=== PATIENT | female | born 1985 | race African-American/Black ===

== ENCOUNTER → 2016-04-23 | Outpatient (CLI) | payer MEDICARE, MEDICAID ==
[~2016-04-23] MED LIST: AMLO10 PO; AMLO10TA2 PO; BENA25MI PO; CALC0.25 PO; CALC0.5C6 PO; CALC600T4 PO; CALCTAB98 PO; FOLI1TAB PO; FOLI1TAB4 PO; FOLI1TAB6 PO; FOLI800T PO; HYDR25 PO; LANT500 CHEW; LOSA100T PO; METO25 PO; METO25TA3 PO; MULT-65 PO; PANT40TA3 PO; PHOSSOL5 PO; POTA10TA2 PO; POTA75TA PO; RENV2.4P PO; SPRI28TA PO; ZITH250T PO; [UNRECOGNIZED DRUG - REMARK]
[2016-04-23 12:43] LABS: MEAN CELL VOLUME 84.3 FL (80.0-100.0); MEAN CORPUSCULAR HEMOGLOBIN 26.9 PG (27.0-34.0); MEAN CORPUSCULAR HGB CONC 31.9 % (32.0-36.0); PLATELET COUNT 133 TH/MM3 (150-450); RED BLOOD COUNT 3.08 MIL/MM3 (4.00-5.30); RED CELL DISTRIBUTION WIDTH 17.1 % (11.6-17.2); REVIEW FLAG FINAL; WHITE BLOOD COUNT 9.1 TH/MM3 (4.0-11.0)
[2016-04-23 12:54] LABS: PROTHROMBIN TIME - PATIENT 11.3 SEC (9.8-11.6)
[2016-04-23 13:14] LABS: BICARBONATE 22.2 MEQ/L (21.0-32.0); POTASSIUM 3.7 MEQ/L (3.5-5.1); TOTAL BILIRUBIN ADULT 0.3 MG/DL (0.2-1.0)
[2016-04-23 13:25] LABS: CALCIUM-PROTEIN CORRECTED 6.4 MG/DL (8.5-10.1)
--- NOTE | 2016-04-23 13:36 | RADRPT ---
EXAM DATE/TIME: 04/23/2016 12:36 [facility] COMPARISON: CHEST PA & LAT, July 18, 2012, 14:11. INDICATIONS : Evaluate for pneumonia, pneumothorax, or communicable disease. Pre op for av fistula. MEDICAL HISTORY : Hypertension. Renal failure. Asthma. Sleep apnea. Stomach ulcers. Dialysis. SURGICAL HISTORY : History of peg tube. History of tracheostomy. ENCOUNTER: Initial ACUITY: 1 day PAIN SCORE: 0/10 LOCATION: chest FINDINGS: PA and lateral views of the chest demonstrate the lungs to be symmetrically aerated without evidence of mass, infiltrate or effusion. Mild cardiomegaly and increased pulmonary vascularity. The cardiomed iastinal contours are unremarkable. Osseous structures are intact. CONCLUSION: Mild cardiomegaly and increased pulmonary vascularity. Cj Sanchez MD on April 23, 2016 at 13:34 Board Certified Radiologist. This report was verified electronically.
--- NOTE | 2016-04-24 17:43 | EKG ---
Date Performed: 04/23/2016 Time Performed: 12:10:15 PTAGE: 30 years EKG: Sinus rhythm NONSPECIFIC T-WAVE ABNORMALITY WHEN COMPARED TO PRIOR EKG THE PATIENT IS NOW IN SINUS RHYTHM AND ST SEGMENTS HAVE IMPROVED. ABNORMAL ECG NO PREVIOUS TRACING DOCTOR: Susy Mcginnis Interpretating Date/Time 04/24/2016 17:42:41
== END ==
LOC: CPRE 11:23
PROVIDERS: ATTEND Surgery
DX: Z01.812 Encounter for preprocedural laboratory examination (principal); Z01.811 Encounter for preprocedural respiratory examination; N18.6 End stage renal disease; R94.31 Abnormal electrocardiogram [ECG] [EKG]
CPT/HCPCS: 36415; 71020; 80053; 85027; 85610; 93005

== ENCOUNTER → 2016-04-27 | Day surgery (SDC) | payer MEDICARE, MEDICAID ==
[~2016-04-27] VITALS: Ht 162.6 cm; Wt 145.5 kg
[~2016-04-27] MED LIST changes: -AMLO10 PO; -BENA25MI PO; +BUPIVACAINE/EPINEPHRINE 0.25% PF 30 ML VIAL INFIL ONE; -CALCTAB98 PO; +DO NOT ADM ANY ANTICOAGULANT DRUGS XX PRN; +FAMOTIDINE 20 MG/2 ML VIAL ONE; -FOLI1TAB PO; +GELFOAM SIZE 100 ONE; +HEPARIN SODIUM - IV 10,000 UNITS/10 ML VIAL ONE; +HEPARIN SODIUM - SQ 10,000 UNITS/ML VIAL ONE; -HYDR25 PO; +INSULIN HUMAN REGULAR 1,000 UNITS/10 ML VIAL SQ PRN; +LACTATED RINGER'S 1000 ML IV SCH; -LANT500 CHEW; -METO25 PO; +METOPROLOL TARTRATE 25 MG TAB PO PRN; +MORPHINE SULFATE 4 MG/ML INJ IV PRN; +ONDANSETRON HCL 4 MG/2 ML VIAL IV PUSH ONE; +PHENYLEPH/NS 1000 MCG/10 ML SYR IV ONE; +PHENYLEPHRINE HCL 10 MG/ML VIAL IV ONE; -POTA75TA PO; +PROPOFOL 200 MG/20 ML AMP IV ONE; +PROTAMINE SULFATE 50 MG/5 ML VIAL ONE; +SODIUM CHLOR 0.9% 250 ML INJ 250 ML ONE; +SODIUM CHLORID 0.9% 500 ML IV SCH; +SODIUM CHLORIDE FLUSH BID IVF SCH; +SODIUM CHLORIDE FLUSH PRN IVF; +THROMBIN (TOPICAL) 5,000 UNIT VIAL ONE; +VANCOMYCIN HCL 1000 MG VIAL ONE; -ZITH250T PO; +fentaNYL CITRATE 250 MCG/5 ML AMP ONE; +oxyCODONE/ACETAMINOPHEN 5 MG/325 MG TAB ONE; +oxyCODONE/ACETAMINOPHEN 5 MG/325 MG TAB PO ONE
[2016-04-27 08:08] VITALS: BP 146/92; PULSE 86; RESP 20; TEMP 99; O2SAT 97
[2016-04-27 13:50] VITALS: BP 140/84; PULSE 88; RESP 16; TEMP 97.5; O2SAT 97
--- NOTE | 2016-04-28 08:23 | MP ---
cc: LORENZA ARIAS DATE OF SURGERY 04/27/2016 PREOPERATIVE DIAGNOSIS End-stage renal disease. POSTOPERATIVE DIAGNOSIS End-stage renal disease. PROCEDURE Right upper extremity A-V fistula, brachiocephalic. SURGEON MD Tiffanie HYDROLOGY TEACHER Walter Grimes ANESTHESIA General endotracheal anesthesia with 20 cc of 0.25% Marcaine with epinephrine. ESTIMATED BLOOD LOSS Minimal. URINE OUTPUT Not calculated. COMPLICATIONS None. DISPOSITION To PACU. PROCEDURE After the patient was given perioperative IV vancomycin as she has an ALLERGY TO PENICILLIN, I made a small 2-3 cm incision just above her right antecubital fossa in her right upper extremity. I dissected out the cephalic vein and the brachial artery with electrocautery and Metzenbaum scissors. I exposed the brachial artery underneath the bicipital aponeurosis, then I exposed the cephalic vein and tied off small and large branches with small and medium clips as well as 3-0 silk ties as needed. Once I did mobilize the brachial artery, I gave her approximately 3000 units of IV heparin and then I used one pediatric profunda clamp proximally and a vessel loop distally to control the brachial artery. I then divided the cephalic vein. Before I controlled the brachial artery, I did divide the cephalic vein distally with a 0 suture ligature and two medium clips. I then used the micro Albarran scissors to perform a venotomy and then I performed an end-to-side anastomosis with a 5-0 Prolene after I performed arteriotomy with an 11-blade and micro Albarran scissors. It should be noted that there was good back-bleeding from the distal brachial artery as well as the vein before closing. It should be noted that there was an excellent thrill in this vein, although the vein was in diameter approximately 1.5 to 2 cm. It did get a little more narrow distally, but there was a noticeable difference in the radial artery distally from triphasic to monophasic and I essentially thought that there may be some steal after the case with this degree of blood flow intake from the fistula. I did plicate down with a 2-0 silk suture, down to a level where the triphasic and signal returned in the right radial artery and there was still a palpable thrill in the cephalic vein. It should be noted that this could be further modified because we will have to bring the patient back for cephalization of her cephalic vein as she has morbid obesity. At the end of the case I used Surgicel to help out with hemostasis and Thrombin Gelfoam. I removed the Thrombin Gelfoam and I left 2-3 piece of Surgicel right around the area of the anastomosis. I did use a total 20 cc of 0.25% Marcaine with epinephrine and then I used a 2-0 and 3-0 Vicryl suture to close the deep fatty layers without impinging my outflow fistula and I used a 4-0 Monocryl with Dermabond over the skin at the end of the case. At the end of the case we did put a Kerlix dressing and a sling and a right upper extremity drape. The patient tolerated the procedure well. DO FRANKIE Montgomery/SUMMER /11:57 AM /8:12 AM
== END | disposition home or self-care (01) ==
LOC: HCVO 07:11
PROVIDERS: ATTEND Surgery
DX: I13.2 Hypertensive heart and chronic kidney disease with heart failure and with stage 5 chronic kidney disease, or end stage renal disease (principal); N18.6 End stage renal disease; I50.9 Heart failure, unspecified; E66.01 Morbid (severe) obesity due to excess calories; Z68.43 Body mass index [BMI] 50.0-59.9, adult
CPT/HCPCS: 01844; 36821; 76937; 84132; J1644; J2370; J2405; J3010; J3370; J7040; J7050; J2720

== ENCOUNTER → 2016-08-04 | Outpatient (CLI) | payer MEDICARE, MEDICAID ==
[~2016-08-04] MED LIST changes: -BUPIVACAINE/EPINEPHRINE 0.25% PF 30 ML VIAL INFIL ONE; -CALC600T4 PO; -DO NOT ADM ANY ANTICOAGULANT DRUGS XX PRN; -FAMOTIDINE 20 MG/2 ML VIAL ONE; -GELFOAM SIZE 100 ONE; -HEPARIN SODIUM - IV 10,000 UNITS/10 ML VIAL ONE; -HEPARIN SODIUM - SQ 10,000 UNITS/ML VIAL ONE; -INSULIN HUMAN REGULAR 1,000 UNITS/10 ML VIAL SQ PRN; -LACTATED RINGER'S 1000 ML IV SCH; -METOPROLOL TARTRATE 25 MG TAB PO PRN; -MORPHINE SULFATE 4 MG/ML INJ IV PRN; -ONDANSETRON HCL 4 MG/2 ML VIAL IV PUSH ONE; -PHENYLEPH/NS 1000 MCG/10 ML SYR IV ONE; -PHENYLEPHRINE HCL 10 MG/ML VIAL IV ONE; -PROPOFOL 200 MG/20 ML AMP IV ONE; -PROTAMINE SULFATE 50 MG/5 ML VIAL ONE; -SODIUM CHLOR 0.9% 250 ML INJ 250 ML ONE; -SODIUM CHLORID 0.9% 500 ML IV SCH; -SODIUM CHLORIDE FLUSH BID IVF SCH; -SODIUM CHLORIDE FLUSH PRN IVF; -THROMBIN (TOPICAL) 5,000 UNIT VIAL ONE; -VANCOMYCIN HCL 1000 MG VIAL ONE; -[UNRECOGNIZED DRUG - REMARK]; -fentaNYL CITRATE 250 MCG/5 ML AMP ONE; -oxyCODONE/ACETAMINOPHEN 5 MG/325 MG TAB ONE; -oxyCODONE/ACETAMINOPHEN 5 MG/325 MG TAB PO ONE
[2016-08-04 11:18] LABS: HEMATOCRIT 29.8 % (35.0-46.0); MEAN CELL VOLUME 85.4 FL (80.0-100.0); MEAN CORPUSCULAR HEMOGLOBIN 26.5 PG (27.0-34.0); PLATELET COUNT 122 TH/MM3 (150-450); RED BLOOD COUNT 3.49 MIL/MM3 (4.00-5.30); RED CELL DISTRIBUTION WIDTH 19.4 % (11.6-17.2); REVIEW FLAG FINAL; WHITE BLOOD COUNT 7.4 TH/MM3 (4.0-11.0)
[2016-08-04 11:33] LABS: INTERNATIONAL NORMALIZED RATIO 1.1 RATIO
[2016-08-04 11:51] LABS: BICARBONATE 24.5 MEQ/L (21.0-32.0); POTASSIUM 3.5 MEQ/L (3.5-5.1)
--- NOTE | 2016-08-04 12:19 | RADRPT ---
EXAM DATE/TIME: 08/04/2016 11:10 [facility] COMPARISON: CHEST PA & LAT, April 23, 2016, 12:36. INDICATIONS : Evaluate for pneumonia, pnumothorax, and communicable diseases. Pre-op right upper extremity access. MEDICAL HISTORY : None. SURGICAL HISTORY : Catheter on right upper chest. ENCOUNTER: Initial ACUITY: 1 day PAIN SCORE: 0/10 LOCATION: Bilateral chest FINDINGS: Panchamber cardiomegaly similar to prior. The central bronchopulmonary markings remain fairly well d elineated and there is stable equalization of pulmonary flow between upper and lower lobes. Tortuosi ty descending thoracic aorta. Both hemidiaphragms are well delineated. CONCLUSION: No acute cardiopulmonary disease. Stable cardiomegaly and equalization of pulmonary flow, unchanged from 04/23/16. Kris Larios MD on August 04, 2016 at 12:16 Board Certified Radiologist. This report was verified electronically.
--- NOTE | 2016-08-04 14:34 | EKG ---
Date Performed: 08/04/2016 Time Performed: 10:36:22 PTAGE: 30 years EKG: Sinus rhythm POSSIBLE LEFT ATRIAL ENLARGEMENT POSSIBLE LEFT VENTRICULAR HYPERTROPHY NONSPECIFIC T-WAVE ABNORMALIT Y ABNORMAL ECG COMPARED TO PRIOR ELECTROCARDIOGRAM, T wave changes are present. PREVIOUS TRACING : 04/23/2016 12.10 DOCTOR: Reji Fisher Interpretating Date/Time 08/04/2016 14:32:17
== END ==
LOC: CPRE 10:16
PROVIDERS: ATTEND Surgery
DX: Z01.810 Encounter for preprocedural cardiovascular examination (principal); Z01.812 Encounter for preprocedural laboratory examination; N18.6 End stage renal disease; R94.31 Abnormal electrocardiogram [ECG] [EKG]
CPT/HCPCS: 36415; 71020; 80048; 85027; 85610; 93005

== ENCOUNTER 2016-08-06 14:20 | Emergency (ER) | payer MEDICARE, MEDICAID ==
[~2016-08-06] VITALS: Ht 162.6 cm; Wt 139.0 kg
[~2016-08-06 14:20] MED LIST changes: -CALC0.25 PO; -FOLI1TAB6 PO; -FOLI800T PO; -MULT-65 PO; -POTA10TA2 PO
[2016-08-06 14:22] VITALS: BP 197/119; PULSE 84; RESP 17; TEMP 98.2; O2SAT 98
--- NOTE | 2016-08-06 14:28 | PD ---
Physical Exam Time Seen by Provider: 14:26 Narrative 30yo F c/o excessive vag bleeding x3 weeks. Was prescribed control by GUARD ENTRANCE REGISTRAR and no change. Feels weak. Denies fever. Reports nausea w/o vomiting. Patient stable. Patient seen in triage. Awaiting bed placement. Data Data Last Documented VS Vital Signs Date Time Temp Pulse Resp B/P Pulse Ox O2 Delivery O2 Flow Rate FiO2 08/06/16 14:22 98.2 84 17 197/119 98 MDM Supervised Visit with EDGAR: Katelyn Up Aug 06, 2016 14:28
--- NOTE | 2016-08-06 17:12 | PD ---
HPI Chief Complaint: Bleeding Time Seen by Provider: 17:08 Travel History International Travel<30 days: No Contact w/Intl Traveler<30days: No Traveled to known affect area: No History of Present Illness HPI 30-year-old female presents to the emergency department for evaluation of vaginal bleeding for 1 month. She states she saw her racecourse barrier attendant and was prescribed control pills, Sprintec. However, the bleeding has not gotten any better. Patient states that she is having intermittent heavy vaginal bleeding for 2 years. She states she's had slight nausea and dizziness. No syncope. She does have history of ESRD and is on peritoneal dialysis. She states she has Epogen shots and her last hemoglobin was 8.1. She states her hemoglobin normally runs in the tens. She also reports history of CHF. She denies any chance of . She denies any abnormal vaginal discharge. She denies risk of STDs reporting one sexual partner. She has no other medical complaints at this time. PFSH Past Medical History Asthma: Yes Cancer: No Cardiovascular Problems: Yes (CHF) Diabetes: No Dialysis: Yes (PERITONEAL) Endocrine: No Gastrointestinal Disorders: Yes (GERD, ULCERS) Genitourinary: Yes (HX OF STOMACH ULCER) Hepatitis: No Hiatal Hernia: No Hypertension: Yes Immune Disorder: No Musculoskeletal: No Neurologic: No Psychiatric: No Reproductive: No Respiratory: Yes (SLEEP APNEA, USES CPAP; TRACH AND ON VENTILATOR 2012) Thyroid Disease: No ?: Not LMP: JULY 08, 2016 : 0 Past Surgical History Abdominal Surgery: Yes (PEG TUBE INSERTED AND REMOVED 2012) AICD: No Body Medical Devices: DIALYSIS CATHETER--PERMCATH Cardiac Surgery: No Ear Surgery: No Endocrine Surgery: No Eye Surgery: No Genitourinary Surgery: No Gynecologic Surgery: No Joint Replacement: No Oral Surgery: No Pacemaker: No Thoracic Surgery: Yes (PERM CATH PLACEMENT 2012) Other Surgery: Yes Social History Alcohol Use: No Tobacco Use: No Substance Use: No Allergies-Medications (Allergen,Severity, Reaction): Coded Allergies: Lortab (Verified Allergy, Mild, ITCHES, 08/06/16) STARTED ITCHING AFTER TAKING Penicillin (Verified Allergy, Mild, RASH, 08/06/16) Reported Meds & Prescriptions Reported Meds & Active Scripts Active Reported Phoslyra Liq (Calcium Acetate (Phosphate Binder)) 667 Mg/5 Ml Soln 20 Ml PO TID take with each meal. Calcitriol 0.5 Mcg Cap 0.75 Mcg PO BID PT STS 0.75MCG TABLET Metoprolol Tartrate 25 Mg Tab 25 Mg PO BID Folate (Folic Acid) 1 Mg Tab 1 Mg PO DAILY Amlodipine (Amlodipine Besylate) 10 Mg Tab 10 Mg PO DAILY Renvela Liq (Sevelamer Carbonate) 2.4 Gm Pack 2.4 Gm PO TID Losartan (Losartan Potassium) 100 Mg Tab 100 Mg PO DAILY Pantoprazole (Pantoprazole Sodium) 40 Mg Tab 40 Mg PO DAILY Sprintec 28 (Norgestimate-Ethinyl Estradiol) 0.25-35 mg-Mcg Tab 1 Tab PO DAILY Review of Systems Except as stated in HPI: all other systems reviewed are Neg Physical Exam Narrative GENERAL: Well-nourished, well-developed female patient, ambulatory. Afebrile. SKIN: Focused skin assessment warm/dry. HEAD: Normocephalic. Atraumatic. EYES: No scleral icterus. No injection or drainage. NECK: Supple, trachea midline. No JVD or lymphadenopathy. CARDIOVASCULAR: Regular rate and rhythm without murmurs, gallops, or rubs. RESPIRATORY: Breath sounds equal bilaterally. No accessory muscle use. Lungs sounds are clear to auscultation. GASTROINTESTINAL: Abdomen soft, non-tender, nondistended. No abdominal pain to palpation. Peritoneal dialysis catheter noted to right lower abdomen. MUSCULOSKELETAL: No cyanosis, or edema. BACK: Nontender without obvious deformity. No CVA tenderness. Data Data Last Documented VS Vital Signs Date Time Temp Pulse Resp B/P Pulse Ox O2 Delivery O2 Flow Rate FiO2 08/06/16 17:25 83 18 178/110 98 Room Air 08/06/16 14:22 98.2 Orders Complete Blood Count With Diff (08/06/16 17:06) Basic Metabolic Panel (Bmp) (08/06/16 17:06) Ed Urine Pregnancytest Poc (08/06/16 17:06) Type And Screen (08/06/16 17:06) Protein Corrected Calcium(Pcc) (08/06/16 17:25) Labs Laboratory Tests Test 08/06/16 17:25 White Blood Count 8.3 TH/MM3 Red Blood Count 3.62 MIL/MM3 Hemoglobin 9.6 GM/DL Hematocrit 30.7 % Mean Corpuscular Volume 84.9 FL Mean Corpuscular Hemoglobin 26.5 PG Mean Corpuscular Hemoglobin 31.2 % Concent Red Cell Distribution Width 18.4 % Platelet Count 130 TH/MM3 Mean Platelet Volume 10.1 FL Neutrophils (%) (Auto) 74.3 % Lymphocytes (%) (Auto) 13.9 % Monocytes (%) (Auto) 8.1 % Eosinophils (%) (Auto) 2.5 % Basophils (%) (Auto) 1.2 % Neutrophils # (Auto) 6.2 TH/MM3 Lymphocytes # (Auto) 1.2 TH/MM3 Monocytes # (Auto) 0.7 TH/MM3 Eosinophils # (Auto) 0.2 TH/MM3 Basophils # (Auto) 0.1 TH/MM3 CBC Comment DIFF FINAL Differential Comment Sodium Level 138 MEQ/L Potassium Level 3.9 MEQ/L Chloride Level 99 MEQ/L Carbon Dioxide Level 20.9 MEQ/L Anion Gap 18 MEQ/L Blood Urea Nitrogen 56 MG/DL Creatinine 26.02 MG/DL Estimat Glomerular Filtration 2 ML/MIN Rate Random Glucose 90 MG/DL Calcium Level 7.0 MG/DL Protein Corrected Calcium 6.6 MG/DL Total Protein 8.2 GM/DL Blood Type O POSITIVE Antibody Screen NEGATIVE MDM Medical Decision Making Medical Screen Exam Complete: Yes Emergency Medical Condition: Yes Medical Record Reviewed: Yes Differential Diagnosis Anemia versus symptomatic anemia versus dysmenorrhea Narrative Course 30-year-old female presents to the emergency department for evaluation of heavy vaginal bleeding for 1 month. Her racecourse barrier attendant placed her on control pills. CBC, BMP, type and screen are ordered and pending. Urine test is ordered and pending. CBC shows hemoglobin 9.6, hematocrit 30.7. This does appear to be patient's baseline.. BMP shows anion gap of 18, creatinine of 26.02, protein corrected calcium of 6.6. UPT is negative. The case with my attending physician, Dr. Gr, who recommends I contact patient's crtt. I talked to Dr. Bourgeois and relayed findings of elevated creatinine, anion gap hypocalcemia. He states these are chronic findings. He states patient is already on calcium supplement and does not want this corrected in the emergency department.. Patient is stable to be discharged to follow up with her racecourse barrier attendant. She verbalizes understanding and agreement. The patient was discharged in stable condition with instructions, including return instructions and follow up instructions. Diagnosis Primary Impression: Abnormal vaginal bleeding Referrals: Hemodialysis Lab Technician call for appointment Patient Instructions: Dysmenorrhea (ED), General Instructions Additional Instructions: Follow up with your racecourse barrier attendant. Return to the emergency department for any acute worsening of symptoms. Med/Other Pt SpecificInfo: No Change to Meds Disposition: 01 DISCHARGE HOME Condition: Stable CompaCorazon Aug 06, 2016 17:12
[2016-08-06 17:25] VITALS: BP 178/110; PULSE 83; RESP 18; O2SAT 98
[2016-08-06] MEDS ORDERED: PHOSSOL5 PO (17:29)
[2016-08-06 17:38] LABS: AUTOMATED NEUTROPHIL # 6.2 TH/MM3 (1.8-7.7); BASOPHIL # 0.1 TH/MM3 (0-0.2); BASOPHIL % 1.2 % (0.0-2.0); EOSINOPHIL # 0.2 TH/MM3 (0-0.4); EOSINOPHIL % 2.5 % (0.0-4.0); HEMATOCRIT 30.7 % (35.0-46.0); HEMO FLAGS DIFF FINAL; LYMPH % 13.9 % (9.0-44.0); LYMPHOCYTE # 1.2 TH/MM3 (1.0-4.8); MEAN CELL VOLUME 84.9 FL (80.0-100.0); MEAN CORPUSCULAR HEMOGLOBIN 26.5 PG (27.0-34.0); MEAN CORPUSCULAR HGB CONC 31.2 % (32.0-36.0); MONO % 8.1 % (0.0-8.0); NEUT % 74.3 % (16.0-70.0); PLATELET COUNT 130 TH/MM3 (150-450); RED BLOOD COUNT 3.62 MIL/MM3 (4.00-5.30); RED CELL DISTRIBUTION WIDTH 18.4 % (11.6-17.2); WHITE BLOOD COUNT 8.3 TH/MM3 (4.0-11.0)
[2016-08-06 17:57] LABS: BICARBONATE 20.9 MEQ/L (21.0-32.0); POTASSIUM 3.9 MEQ/L (3.5-5.1)
[2016-08-06 18:23] LABS: CALCIUM-PROTEIN CORRECTED 6.6 MG/DL (8.5-10.1)
[2016-10-12] MEDS ORDERED: CALC0.25 PO (10:10)
[2016-10-12] MEDS ORDERED: FOLI800T PO (10:12)
[2016-10-12] MEDS ORDERED: FOLI1TAB6 PO (10:13)
== END 2016-08-06 19:51 | disposition home or self-care (01) ==
LOC: NEPD 14:20
DX: N93.9 Abnormal uterine and vaginal bleeding, unspecified (principal); I50.9 Heart failure, unspecified; Z99.2 Dependence on renal dialysis; I12.0 Hypertensive chronic kidney disease with stage 5 chronic kidney disease or end stage renal disease; N18.6 End stage renal disease
CPT/HCPCS: 80048; 84155; 84703; 85025; 86850; 86900; 86901; 99284

== ENCOUNTER → 2016-08-11 | Day surgery (SDC) | payer MEDICARE, MEDICAID ==
[~2016-08-11] MED LIST changes: +CALC0.25 PO; +CHLORHEXIDINE GLUCONATE 2 % 1 PACK (2 CLOTHS) TOPICAL PRN; +FOLI1TAB6 PO; +FOLI800T PO; +INSULIN HUMAN REGULAR 1,000 UNITS/10 ML VIAL SQ PRN; +LACTATED RINGER'S 1000 ML IV PRN; +METOPROLOL TARTRATE 25 MG TAB PO PRN; +MULT-65 PO; +POVIDONE IODINE 5% (ANTISEPSIS KIT) 4 APPLICATIONS EACH NARE PRN; +SODIUM CHLORID 0.9% 500 ML IV PRN
[2016-08-11 09:24] VITALS: BP 179/100; PULSE 79; RESP 16; TEMP 99.7; O2SAT 97
== END | disposition home or self-care (01) ==
LOC: HSDC 08:53
PROVIDERS: ATTEND Surgery
DX: N18.6 End stage renal disease (principal); Z53.8 Procedure and treatment not carried out for other reasons
CPT/HCPCS: 99211; G0463

== ENCOUNTER 2016-10-13 08:52 | Day surgery (SDC) | payer MEDICARE, MEDICAID ==
[~2016-10-13] VITALS: Ht 162.6 cm; Wt 136.4 kg
[~2016-10-13 08:52] MED LIST changes: -CALC0.5C6 PO; -CHLORHEXIDINE GLUCONATE 2 % 1 PACK (2 CLOTHS) TOPICAL PRN; -FOLI1TAB4 PO; -FOLI800T PO; -INSULIN HUMAN REGULAR 1,000 UNITS/10 ML VIAL SQ PRN; -LACTATED RINGER'S 1000 ML IV PRN; -METOPROLOL TARTRATE 25 MG TAB PO PRN; -MULT-65 PO; -PHOSSOL5 PO; -POVIDONE IODINE 5% (ANTISEPSIS KIT) 4 APPLICATIONS EACH NARE PRN; -SODIUM CHLORID 0.9% 500 ML IV PRN
[2016-10-13] MEDS ORDERED: SODIUM CHLORIDE FLUSH PRN IV FLUSH (09:30)
[2016-10-13 09:32] LABS: AUTOMATED NEUTROPHIL # 6.6 TH/MM3 (1.8-7.7); BASOPHIL # 0.1 TH/MM3 (0-0.2); BASOPHIL % 0.9 % (0.0-2.0); EOSINOPHIL # 0.1 TH/MM3 (0-0.4); EOSINOPHIL % 1.8 % (0.0-4.0); HEMATOCRIT 36.7 % (35.0-46.0); HEMO FLAGS DIFF FINAL; LYMPH % 11.1 % (9.0-44.0); LYMPHOCYTE # 0.9 TH/MM3 (1.0-4.8); MEAN CELL VOLUME 82.4 FL (80.0-100.0); MEAN CORPUSCULAR HGB CONC 32.8 % (32.0-36.0); MONO % 6.1 % (0.0-8.0); NEUT % 80.1 % (16.0-70.0); PLATELET COUNT 122 TH/MM3 (150-450); RED BLOOD COUNT 4.46 MIL/MM3 (4.00-5.30); WHITE BLOOD COUNT 8.3 TH/MM3 (4.0-11.0)
[2016-10-13] MEDS ORDERED: MULT-65 PO (09:33)
[2016-10-13 09:34] VITALS: BP 174/105; PULSE 80; RESP 18; TEMP 98.5; O2SAT 96
[2016-10-13 09:43] LABS: PROTHROMBIN TIME - PATIENT 11.5 SEC (9.8-11.6)
[2016-10-13 10:07] LABS: BICARBONATE 20.9 MEQ/L (21.0-32.0); POTASSIUM 3.5 MEQ/L (3.5-5.1)
[2016-10-13 10:37] LABS: BETA HCG QUANT LESS THAN 1 MIU/ML (0-5)
[2016-10-13] MEDS ORDERED: MIDAZOLAM HCL 5 MG/5 ML VIAL ONE (10:55)
[2016-10-13] MEDS ORDERED: HEPARIN SODIUM - IV 10,000 UNITS/10 ML VIAL ONE (10:55)
[2016-10-13] MEDS ORDERED: HEPARIN-NS/PF INJ 500 ML ONE (10:56)
--- NOTE | 2016-10-13 12:00 | CATHPROC ---
[facility] HIS Report Study Information Study Number Admission Scheduled Start Study Start [id number] Oct 13 2016 8:52AM 10/13/2016 Oct 13 2016 10:41AM [place] Service Cath Endovascular Study Admit Source Facility Department Other [facility] - Fabrication Machine Operator Physician and Clinical Staff Initial Davey Mendenhall Crtt Bela Coy RN Crtt Edwin JONES, Ravi Recorder Matt, [place],RT(R) Scrub Sammie Sanchez,CLAIM PROCESSOR TECH2 Equipment Time Electronic Field Service Engineer Description Size Mfg Part Number Used/Scraped MPIS-502-10.0- INTRODUCER SET, 11:18 [employer]. FR 5 SC-NT-U-SST Used MICROPUNCTURE, STIFFENED *[id number] MPIS-502-10.0- INTRODUCER SET, 11:27 [employer]. FR 5 SC-NT-U-SST Used MICROPUNCTURE, STIFFENED *[id number] MPIS-502-10.0- INTRODUCER SET, 11:28 [employer] FR 5 SC-NT-U-SST Used MICROPUNCTURE, STIFFENED *[id number] 11:44 CORDIS/ THEODORA SHEATH, FR7 BRITE TIP 5.5CM FR 7 5.5CM [id number] Used MARINE POLYMER 11:18 PATCH, SYVEK EXCEL (PACER) 400-16-05 Used TECHNOLOGIES [id number] 11:18 [employer] WIRE, BENTSON .035 260CM 260CM Used *[id number] 11:18 [employer] PACK, CCL CUSTOM * Used *[id number] 11:18 Sitemasher MEDICAL WIRE, EXCHANGE 260CM 3MMJ 260CM Used *[id number] 11:18 NAMIC TUBING, HIGH PRESSURE 20" 20" Used *[id number] 11:18 NYCOMED OMNIPAQUE, 300 MG, 100ML 100ML [id number] Used 11:47 NYCOMED OMNIPAQUE, 300 MG, 50ML 50ML [id number] Used 11:47 NYCOMED OMNIPAQUE, 300 MG, 50ML 50ML [id number] Used SUTURE, 2-0 VICRYL [SH] ([id number]) 11:28 TERUMO MEDICAL SHEATH, FR5 TERUMO (10CM) FR 5 [id number] Used History: Allergies Allergy Reaction Flagyl Lortab ITCHES Penicillin RASH History: Risk Factors Family History of Hypertension Dyslipidemia Previous MT Previous Heart Failure Premature CAD Yes No No No Yes Prior Valve Prior PCI Prior CABG Surgery No No No Cerebrovascular Peripheral Artery Chronic Lung On Dialysis Diabetes Disease Disease Disease Yes No No No No History: Other Current Smoker No Labs Hgb (g/dl) Hct (%) WBC (l/cumm) Platelets (thousands) 11.60-17.00 35.00-51.00 4.00-11.00 150.00-450.00 12.0 36.7 8.3 122 Glucose (mg/dl) BUN (mg/dl) 74.00-106.00 7.00-18.00 93 69 Na (meq/l) K (meq/l) 136.00-145.00 3.50-5.10 135 3.5 INR (PTT:PT) 0.90-1.10 1 CPK-MB (ng/ML) 0.50-3.60 Not Drawn Medication Medication Total Dose (Bolus/Oral) Medication Total Dosage/Unit 1% XYLOCAINE 5 mL FENTANYL 100 mcg VERSED 4 mg Medications (Bolus/Oral) Medication Time Given Dosage/Unit Administered By Reason VERSED 10/13/2016 11:05:45 AM 1 mg Adamy, Bela 1 mg VERSED given in lab by Bela Coy RN in Left Antecubital via Peripheral IV. Ordered by Davey Ugarte. FENTANYL 10/13/2016 11:06:29 AM 25 mcg Adamy, Bela 25 mcg FENTANYL given in lab by Bela Coy RN in Left Antecubital via Peripheral IV. Ordered by Davey Moreno. VERSED 10/13/2016 11:11:49 AM 1 mg Adamy, Bela 1 mg VERSED given in lab by Bela Coy RN in Left Antecubital via Peripheral IV. Ordered by Davey Ugarte. FENTANYL 10/13/2016 11:12:35 AM 25 mcg Adamy, Bela 25 mcg FENTANYL given in lab by Bela Coy RN in Left Antecubital via Peripheral IV. Ordered by Davey Moreno. 1% XYLOCAINE 10/13/2016 11:16:19 AM 5 mL Adamy, Bela 5 mL 1% XYLOCAINE given in lab by Bela Coy RN in Right Arm via Subcutaneous. Ordered by Davey Frazier. VERSED 10/13/2016 11:20:53 AM 1 mg Adamy, Bela 1 mg VERSED given in lab by Bela Coy RN in Left Antecubital via Peripheral IV. Ordered by Davey Ugarte. FENTANYL 10/13/2016 11:21:39 AM 25 mcg Adamy, Bela 25 mcg FENTANYL given in lab by Bela Coy RN in Left Antecubital via Peripheral IV. Ordered by Davey Moreno. VERSED 10/13/2016 11:27:17 AM 1 mg Adamy, Bela 1 mg VERSED given in lab by Bela Coy RN in Left Antecubital via Peripheral IV. Ordered by Davey Ugarte. FENTANYL 10/13/2016 11:28:10 AM 25 mcg Adamy, Bela 25 mcg FENTANYL given in lab by Bela Coy RN in Left Antecubital via Peripheral IV. Ordered by Davey Moreno. Medication (Drip) Medication Time Given Dosage/Unit Concentration/Unit Diluent (ml) Solution IV Solutions 10/13/2016 10:52:49 AM 0 mL (IV) 500 NaCl .9 Patient arrived on IV Solutions given by Davey Moreno in Left Antecubital via Peripheral IV. Pump/D rip Flow = 20 ml/hr using NaCl .9. Ordered by Davey Moreno. Initial Case Assessment Cardiovascular HR Rhythm NIBP Chest Pain 69 sr 136/91 0 Edema Present Skin color Skin None Normal Warm Dry Neurological State Oriented to time-place- Alert Moves all extremities person Respiration - General Respiration Rate SpO2 (%) O2 (lpm) (B/min) 18 100 0 Chronological Log Time Study Chronological Log 10:42:53 Patient arrived via Bed. Dr. Moreno notified of all critical labs. 10:42:54 Pt. has a negative test. 10:42:55 Patient Name, D.O.B, / Armband Verified By R.N. 10:42:56 Consent signed by the physician and the patient and verified by the Fabrication Machine Operator staff. 10:42:57 Pre-op and post- op instructions given; patient acknowledges understanding of instructions. 10:43:30 Verbal Stimulation=2 Physical Stimulation=2 Airway=2 Respiration=2 TOTAL=8. (0=absent, 1=li mited, 2=present) 10:43:43 Patient has been NPO for More than 6Hrs. 10:43:46 Skin Breakdown-none present per patient. Vitals capture started with the following parameters, Patient=Adult, Interval=5 min, Initial Pr ccbuva=850 mmHg, 10:50:16 Deflation Rate=5 mmHg 10:50:56 HR=73 bpm, LAWN=946/91 mmhg, SpO2=84.0 %, Resp=5 B/min, Kimble=2 10:52:35 A # 20 IV was noted in the Antecubital (left). Grade = 0 Patient arrived on IV Solutions given by Davey Moreno in Left Antecubital via Peripheral IV. Pump/Drip Flow = 20 10:52:49 ml/hr using NaCl .9. Ordered by Davey Moreno. 10:53:28 History and physical on the chart or being dictated. Assessment: Initial Case, HR=69 BPM, Rhythm=sr, GFAA=510/91 mmhg, Chest Pain=0, Edema=None, Col or=Normal, Skin = Warm, Dry 10:53:31 Neurological: State=Alert, Ox3, MA Respiration: Resp=18 B/min, YuE1=187 %, O2=0 lpm 10:53:32 Reference ECG taken 10:54:04 Right arm fistula prepped with 2% chlorhexidine, and with a 3 min. waiting time. 10:55:51 HR=80 bpm, KDDU=284/74 mmhg, KzL1=199.0 %, Resp=9 B/min, Kimble=2 11:00:50 HR=71 bpm, OLSX=689/95 mmhg, SpO2=93.0 %, Resp=22 B/min, Kimble=2 11:05:26 MD arrived. 11:05:45 1 mg VERSED given in lab by Bela Coy, RN in Left Antecubital via Peripheral IV. Orde red by Davey Moreno. 11:05:47 HR=76 bpm, JNTW=763/102 mmhg, Resp=24 B/min, Kimble=2 11:06:29 25 mcg FENTANYL given in lab by Bela Coy, RN in Left Antecubital via Peripheral IV. Ordered by Davey Moreno. 11:10:52 HR=72 bpm, PZTJ=391/88 mmhg, BhM0=741.0 %, Resp=24 B/min, Kimble=2 11:11:49 1 mg VERSED given in lab by Bela Coy RN in Left Antecubital via Peripheral IV. Orde red by Davey Moreno. 11:12:35 25 mcg FENTANYL given in lab by Bela Coy RN in Left Antecubital via Peripheral IV. Ordered by Davey Moreno. 11:15:49 HR=77 bpm, UGPT=057/88 mmhg, JoC8=827.0 %, Resp=19 B/min, Kimble=2 Time Out. Correct patient, correct procedure,correct physician, ,power injector not loaded with contrast with surgical 11:15:53 team present. Time Out Concurred by MD, individual staff and ENGRAVER PANTOGRAPH in procedure. Not loaded at t his time. 11:16:09 Presedation re-assessment performed by Fabrication Machine Operator RN. 11:16:11 Case Start 11:16:12 Verbal Stimulation=2 Physical Stimulation=2 Airway=2 Respiration=2 TOTAL=8. (0=absent, 1=li mited, 2=present) 11:16:19 5 mL 1% XYLOCAINE given in lab by Bela Coy RN in Right Arm via Subcutaneous. Ordere d by Davey Moreno. 11:20:48 HR=74 bpm, QCZC=542/81 mmhg, Resp=20 B/min, Kimble=2 11:20:53 1 mg VERSED given in lab by Bela Coy RN in Left Antecubital via Peripheral IV. Orde red by Davey Moreno. 11:21:39 25 mcg FENTANYL given in lab by Bela Coy RN in Left Antecubital via Peripheral IV. Ordered by Davey Moreno. 11:25:03 Access site was ~. right arm fistula 11:25:21 Access failed with micropuncture. 11:25:52 HR=80 bpm, BADK=238/81 mmhg, JjG5=922.0 %, Resp=20 B/min, Kimble=2 11:27:17 1 mg VERSED given in lab by Bela Coy, ROBERT in Left Antecubital via Peripheral IV. Orde red by Davey Moreno. 11:28:10 25 mcg FENTANYL given in lab by Adamy, Bela, RN in Left Antecubital via Peripheral IV. Ordered by Davey Moreno. 11:30:49 HR=77 bpm, HIII=469/83 mmhg, SpO2=99.0 %, Resp=20 B/min, Kimble=2 11:35:50 HR=80 bpm, NPSR=080/84 mmhg, Resp=22 B/min, Kimble=2 11:36:32 Access site was ~RUE Fistula~. 11:37:06 A SHEATH, FR5 TERUMO (10CM) FR 5 was advanced into the Fistula using the Percutaneous techn ique. 11:39:19 Manual injections in Right arm fistula through 5 equatorial guinean sheath. 11:40:51 HR=81 bpm, UQXX=754/85 mmhg, QxE4=808.0 %, Resp=24 B/min, Kimble=2 11:45:48 HR=82 bpm, IMZC=334/91 mmhg, TeE4=199.0 %, Resp=19 B/min, Kimble=2 11:48:47 Case End 11:49:37 Sheath removed; pressure applied to access site by Sammie Sanchez. 11:50:53 HR=78 bpm, KIQA=761/88 mmhg, HfH5=005.0 %, Resp=17 B/min, Kimble=2 11:53:59 No case complications noted. 11:54:01 Cine recording checked. 11:54:13 Bedside Report will be given. 11:54:23 Contrast Scanned 11:55:52 HR=79 bpm, GFIC=351/93 mmhg, AeZ4=615.0 %, Resp=23 B/min, Kimble=2 11:56:26 Sterile dressing applied to site 11:57:29 Patient moved to [facility] End Study - Contrast Media Used In Study Contrast Total Opened (mL) Total Used (mL) Total Wasted (mL) Omnipaque 40 40 0 End Study - Radiation Exposure Fluoro Time (minutes) 4.3 End Study - Patient Disposition Complications Transferred To Telemetry Bed
--- NOTE | 2016-10-13 17:23 | MP ---
cc: DAVEY ARIAS DATE OF SURGERY: 10/13/2016 OPERATION: Fistulogram, right upper extremity. SURGEON: Davey Arias DO. ESTIMATED BLOOD LOSS: Minimal URINE OUTPUT Not calculated. COMPLICATIONS None SEDATION Moderate. PROCEDURE: The patient's right upper extremity was prepped and draped in sterile fashion after being under moderate sedation. I used ultrasound to get access into the threatened right upper extremity cephalic vein fistula. There was concern for arterial anastomosis as well as outflow of vein stenosis with arm swelling. Patient had a fairly large arm. The cephalic vein was approximately 1.5 to 2 cm and more than 1 cm in depth in most locations. I was able to get access after the third attempt. I shot a fistulogram which showed that there was a patent outflow vein that was diffusely narrowed, showed that there appeared to be at least a moderate stenosis at the left subclavian innominate junction. When I tried to occlude the cephalic vein to see the proximal anastomosis, I was not able to. I suspect that the vessel was in spasm from the multiple attempts. The patient tolerated the procedure and we pulled the catheter at the end of the case. There was no definitive hematoma that could be palpated. The patient's arm appeared to be stable. DO FRANKIE Montgomery/MARCELINA /11:56 AM /5:19 PM
[2016-10-13] MEDS ORDERED: SODIUM CHLORIDE FLUSH BID IV FLUSH SCH (21:00)
== END 2016-10-13 13:54 | disposition home or self-care (01) ==
LOC: HDIC 08:52 → HCVO 08:52
PROVIDERS: ATTEND Surgery
DX: N18.6 End stage renal disease (principal)
CPT/HCPCS: 36901; 75820; 80048; 84155; 84702; 85025; 85610; C1769; C1893; J1644; J2250; J3010

== ENCOUNTER 2016-10-19 09:15 | Day surgery (SDC) | payer MEDICARE, MEDICAID ==
[~2016-10-19 09:15] MED LIST changes: +MULT-65 PO
[2016-10-19 10:08] VITALS: BP 144/90
[2016-10-19] MEDS ORDERED: IOHEXOL 300 MG/ML 100 ML BTL (for Rad CT) IV ONE (13:10)
[2016-10-19] MEDS ORDERED: IOHEXOL 350 MG/ML 100 ML BTL (for RAD DIAG) IV ONE (13:10)
--- NOTE | 2016-10-19 14:06 | MA ---
cc: DAVEY ARIAS DATE: 10/19/[address] Davey Arias INDICATION End-stage renal disease, need for hemodialysis access, non-maturation of right upper extremity, now performing venogram of the left upper extremity. PROCEDURE Venogram. DETAILS OF PROCEDURE The patient's left upper extremity was prepped and draped in a sterile fashion. We got access to the distal aspect of the left hand vein. We injected contrast through this vein. We had a tourniquet up above the antecubital fossa to take a look at the forearm and then released it. We were able to look at the outflow veins and central veins as well. FINDINGS My findings were that the veins below the level of the antecubital fossa and the basilic and cephalic veins were not adequate and were definitely less than 2 mm in diameter. In the level between the antecubital fossa and the shoulder there appeared to be a cephalic vein more along the length that was probably in the area of 2-3 mm in diameter with good flow. The basilic vein was more prominent distally than it was just at the level of the antecubital fossa and appeared to be anywhere between 2 and 4 mm in diameter. The patient did appear to have good blood flow into the axillary and subclavian veins. The subclavian vein right at the junction with the internal jugular vein appeared to have at least a mild narrowing. The left innominate vein and the SVC appeared to flow appropriately. CONCLUSIONS The patient did not have adequate veins below the level of the antecubital fossa. Marginal vein at the antecubital fossa with the cephalic vein appearing to be patent the length of the arm up into the axillary vein and then at least a mild stenosis of the left subclavian vein. DO FRANKIE Montgomery/LANI /1:38 PM /2:04 PM
== END 2016-10-19 14:10 | disposition home or self-care (01) ==
LOC: HDOC 09:15 → HDIC 09:16 → HDOC 14:10
PROVIDERS: ATTEND Surgery
DX: I13.2 Hypertensive heart and chronic kidney disease with heart failure and with stage 5 chronic kidney disease, or end stage renal disease (principal); N18.6 End stage renal disease; I50.9 Heart failure, unspecified
CPT/HCPCS: 75820; 76937; Q9967

== ENCOUNTER → 2017-02-05 | Outpatient (CLI) | payer MEDICARE, MEDICAID ==
[2017-02-05 13:05] LABS: AUTOMATED NEUTROPHIL # 5.1 TH/MM3 (1.8-7.7); BASOPHIL # 0.1 TH/MM3 (0-0.2); BASOPHIL % 0.8 % (0.0-2.0); EOSINOPHIL # 0.1 TH/MM3 (0-0.4); EOSINOPHIL % 1.8 % (0.0-4.0); HEMO FLAGS DIFF FINAL; LYMPH % 12.5 % (9.0-44.0); LYMPHOCYTE # 0.8 TH/MM3 (1.0-4.8); MEAN CELL VOLUME 86.9 FL (80.0-100.0); MONO % 8.2 % (0.0-8.0); NEUT % 76.7 % (16.0-70.0); PLATELET COUNT 150 TH/MM3 (150-450); RED BLOOD COUNT 4.03 MIL/MM3 (4.00-5.30); RED CELL DISTRIBUTION WIDTH 17.1 % (11.6-17.2); WHITE BLOOD COUNT 6.7 TH/MM3 (4.0-11.0)
--- NOTE | 2017-02-05 13:13 | RADRPT ---
EXAM DATE/TIME: 02/05/2017 12:31 [facility] COMPARISON: CHEST PA & LAT, August 04, 2016, 11:10. INDICATIONS : Evaluate for pneumonia, pnumothorax, and communicable diseases. Pre-op right upper extremity access. MEDICAL HISTORY : Congestive heart failure. Gastroesophageal reflux disease. Ulcers. Sleep apnea. Renal failure. Pe ritoneal dialysis. SURGICAL HISTORY : Tracheostomy. Permacath. Peg tube placement & removal. ENCOUNTER: Initial ACUITY: 1 day PAIN SCORE: 0/10 LOCATION: chest FINDINGS: PA and lateral views of the chest demonstrate the lungs to be symmetrically aerated without evidence of mass, infiltrate or effusion. The heart size is enlarged but stable compared to the prior study.. Osseous structures are intact. CONCLUSION: No acute disease. No significant change has occurred. Neel Cronin MD on February 05, 2017 at 13:11 Board Certified Radiologist. This report was verified electronically.
[2017-02-05 13:18] LABS: APTT (PATIENT) 31.4 SEC (24.3-30.1); INTERNATIONAL NORMALIZED RATIO 1.1 RATIO; PROTHROMBIN TIME - PATIENT 11.7 SEC (9.8-11.6)
[2017-02-05 13:43] LABS: BICARBONATE 22.2 MEQ/L (21.0-32.0); POTASSIUM 3.7 MEQ/L (3.5-5.1)
--- NOTE | 2017-02-08 18:10 | EKG ---
Date Performed: 02/05/2017 Time Performed: 12:10:16 PTAGE: 31 years EKG: Sinus rhythm NONSPECIFIC T-WAVE ABNORMALITY BORDERLINE ECG Compared to prior tracing no significant change NO PREVIOUS TRACING DOCTOR: Raciel Salgado Interpretating Date/Time 02/08/2017 18:08:33
== END ==
LOC: CPRE 11:29
PROVIDERS: ATTEND Surgery
DX: Z01.810 Encounter for preprocedural cardiovascular examination (principal); Z01.811 Encounter for preprocedural respiratory examination; Z01.812 Encounter for preprocedural laboratory examination; N18.6 End stage renal disease; R94.31 Abnormal electrocardiogram [ECG] [EKG]
CPT/HCPCS: 36415; 71020; 80048; 85025; 85610; 85730; 93005

== ENCOUNTER → 2017-02-08 | Day surgery (SDC) | payer MEDICARE, MEDICAID ==
[~2017-02-08] VITALS: Ht 162.6 cm; Wt 141.4 kg
[~2017-02-08] MED LIST changes: +*morphine SULFATE 8 MG/ML PERIprocedure ONLY ONE; +BUPIVACAINE HCL PF 0.5% 30 ML VIAL ONE; +CHLORHEXIDINE GLUCONATE 2 % 1 PACK (2 CLOTHS) TOPICAL PRN; +DEXAMETHASONE SOD PHOS 4 MG/ML VIAL IV ONE; +DO NOT ADM ANY ANTICOAGULANT DRUGS PRN; +GLYCOPYRROLATE 1 MG/5 ML SYRINGE IV PUSH ONE; +HEPARIN SODIUM - IV 10,000 UNITS/10 ML VIAL ONE; +HEPARIN-NS/PF INJ 500 ML ONE; +INSULIN HUMAN REGULAR 1,000 UNITS/10 ML VIAL SQ PRN; +LACTATED RINGER'S 1000 ML IV PRN; +LIDOCAINE HCL 1% PF 5 ML AMPULE OTHER ONE; +METOPROLOL TARTRATE 25 MG TAB PO PRN; +MORPHINE SULFATE 4 MG/ML INJ IV ONE; +NEOSTIGMINE 3 MG/3 ML SYR IV ONE; +ONDANSETRON HCL 4 MG/2 ML VIAL IV PUSH ONE; +ONDANSETRON HCL 4 MG/2 ML VIAL IV PUSH PRN; +PHENYLEPH/NS 1000 MCG/10 ML SYR IV ONE; +POVIDONE IODINE 5% (ANTISEPSIS KIT) 4 APPLICATIONS EACH NARE PRN; +PROPOFOL 200 MG/20 ML AMP IV ONE; +PROTAMINE SULFATE 50 MG/5 ML VIAL ONE; +ROCURONIUM INJ 50 MG/5 ML SYRINGE IV PUSH ONE; +SODIUM CHLORID 0.9% 500 ML IV PRN; +THROMBIN (TOPICAL) 20,000 UNIT SPRAY KIT ONE; +VANCOMYCIN HCL 1000 MG VIAL ONE
--- NOTE | 2017-02-08 08:48 | HHI.HP ---
History of Present Illness Chief Complaint: failing R UE AVF History of Present Illness 31 yo female with ESRD on PD who has R BC AVF placed months ago by another surgeon. s/p intervention and still with proximal stenosis. Also deep secondary to body habitus. LEFT handed. Past/Family/Social History Past Medical History ESRD CHF? HTN JUAN J Past Surgical History R BC AVF trach Social History nonsmoker Family History NC Home Medications Reported Medications Multiple Vitamin (Multi-Vitamin Daily) 1 Tab Tab, TAB PO DAILY for Nutritional Supplement, TAB 0 Refills 10/13/16 Folic Acid (Folic Acid) 1 Mg Tablet, 1 MG PO DAILY 10/12/16 Calcitriol (Calcitriol) 0.25 Mcg Cap, 0.75 MCG PO TID for Calcium Supplement, # 90 CAP 0 Refills 10/12/16 Metoprolol Tartrate (Metoprolol Tartrate) 25 Mg Tab, 25 MG PO BID for Blood Pressure Management, #60 TAB 0 Refills 04/23/16 Amlodipine (Amlodipine) 10 Mg Tab, 10 MG PO DAILY for Blood Pressure Management , #30 TAB 0 Refills 04/23/16 Sevelamer Carbonate Liq (Renvela Liq) 2.4 Gm Pack, 2.4 GM PO TID for Control phosphorus levels, #90 PKT 0 Refills 04/23/16 Losartan (Losartan) 100 Mg Tab, 100 MG PO DAILY for Blood Pressure Management, # 30 TAB 0 Refills 04/23/16 Pantoprazole (Pantoprazole) 40 Mg Tab, 40 MG PO DAILY for Reflux, #30 TAB 0 Refills 04/23/16 Norgestimate-Ethinyl Estradiol (Sprintec 28) 0.25-35 mg-Mcg Tab, 1 TAB PO DAILY for Control, #1 PACK 0 Refills 04/23/16 Coded Allergies: metronidazole (Unverified Allergy, Severe, 02/08/17) acetaminophen (Unverified Allergy, Mild, ITCHES, 02/08/17) STARTED ITCHING AFTER TAKING hydrocodone (Unverified Allergy, Mild, ITCHES, 02/08/17) STARTED ITCHING AFTER TAKING penicillin G (Unverified Allergy, Mild, RASH, 02/08/17) Review of Systems Constitutional: DENIES: Chills, Night Sweats Respiratory: DENIES: Cough Physical Exam Vitals/I&O Date Time Temp Pulse Resp B/P (MAP) Pulse Ox O2 Delivery O2 Flow Rate FiO2 02/08/17 08:18 99.1 69 20 134/101 (112) 100 Neuro: alert, oriented, no complaints HEENT: NC/AT Neck: no JVD Heart: reg rate, no M Lungs: clear B Vascular: R UE AVF with pulsatile character R UE Extremities: no C/C/E Laboratory Tests Test 02/08/17 08:10 Caprini VTE Risk Assessment Caprini VTE Risk Assessment: Mod/High Risk (score >= 2) Caprini Risk Assessment Model Point Value = 1 Point Value = 2 Point Value = 3 Point Value = 5 Age 41-60 Minor surgery BMI > 25 kg/m2 Swollen legs Varicose veins or History of unexplained or recurrent spontaneous Oral contraceptives or hormone replacement Sepsis (< 1 month) Serious lung disease, including pneumonia (< 1 month) Abnormal pulmonary function Acute myocardial infarction Congestive heart failure (< 1 month) History of inflammatory bowel disease Medical patient at bed rest Age 61-74 Arthroscopic surgery Major open surgery (> 45 min) Laparoscopic surgery (> 45 min) Malignancy Confined to bed (> 72 hours) Immobilizing plaster cast Central venous access Age >= 75 History of VTE Family history of VTE Factor V Leiden Prothrombin [id number] Lupus anticoagulant Anticardiolipin antibodies Elevated serum homocysteine Heparin-induced thrombocytopenia Other congenital or acquired thrombophilia Stroke (< 1 month) Elective arthroplasty Hip, pelvis, or leg fracture Acute spinal cord injury (< 1 month) Prophylaxis Regimen Total Risk Factor Score Risk Level Prophylaxis Regimen 0-1 Low Early ambulation 2 Moderate Order ONE of the following: *Sequential Compression Device (SCD) *Heparin 5000 units SQ BID 3-4 Higher Order ONE of the following medications: *Heparin 5000 units SQ TID *Enoxaparin/Lovenox 40 mg SQ daily (WT < 150 kg, CrCl > 30 mL/min) *Enoxaparin/Lovenox 30 mg SQ daily (WT < 150 kg, CrCl > 10-29 mL/min) *Enoxaparin/Lovenox 30 mg SQ BID (WT < 150 kg, CrCl > 30 mL/min) AND/OR *Sequential Compression Device (SCD) 5 or more Highest Order ONE of the following medications: *Heparin 5000 units SQ TID (Preferred with Epidurals) *Enoxaparin/Lovenox 40 mg SQ daily (WT < 150 kg, CrCl > 30 mL/min) *Enoxaparin/Lovenox 30 mg SQ daily (WT < 150 kg, CrCl > 10-29 mL/min) *Enoxaparin/Lovenox 30 mg SQ BID (WT < 150 kg, CrCl > 30 mL/min) AND *Sequential Compression Device (SCD) Assessment and Plan Plan ESRD with failing R UE AVF Plan for surgical revision including repair proximally and superficialization Pt requests d/c today Murali Alcala MD Feb 08, 2017 08:48
--- NOTE | 2017-02-08 11:14 | HHI.PR ---
cc: Murphy Bourgeois MD Immediate Post Op Note Procedure Date: Feb 08, 2017 Pre Op Diagnosis: failing R UE access Post Op Diagnosis: failing R UE access Surgeon: Murali Alcala Real Estate Attorney(s): Walter Grimes Procedure: R UE access revision (interposition with 6mm PTFE and superficialization) Findings: good vein except small portion proximally Additional Information: + thrill and good Doppler signal in wrist Complications: none Specimen(s) removed: none for pathology Estimated blood loss: 50mL Anesthesia: General Drains: None Fluids: 500mL IVF Patient to: PACU Implant/Devices: SEE IMPLANT LOG (if applicable) Date/Time of Procedure: SEE SURGICAL CARE RECORD Murali Alcala MD Feb 08, 2017 11:14
--- NOTE | 2017-02-08 11:55 | PD.VS.PN ---
Subjective POD #: 0 Procedure(s): R UE access revision (interposition with 6mm PTFE and superficialization) Subjective/Hospital Course Pain controlled R UE incision I/C/D + Thrill near R UE AVF + radial pulse Pt denies hand pain Objective Vitals/I&O Date Time Temp Pulse Resp B/P (MAP) Pulse Ox O2 Delivery O2 Flow Rate FiO2 02/08/17 11:30 65 16 132/83 (99) 96 Nasal Cannula 2 02/08/17 11:23 15 02/08/17 11:15 63 15 136/80 (98) 95 Nasal Cannula 2 02/08/17 11:00 98.0 60 15 135/85 (102) 100 Simple Mask 8 02/08/17 08:18 99.1 69 20 134/101 (112) 100 02/08/17 02/08/17 02/08/17 07:00 15:00 23:00 Intake Total 500 ml Output Total 50 ml Balance 450 ml Exam: GENERAL: A&OX3,afebrile 30/F/ NAD SKIN: Warm and dry UE warm with motor intact Strong equal shipping specialist strength + palpable thrill near R UE AVF R Radial pulse palpable PT denies hand pain CARDIOVASCULAR: NSR on CM MUSCULOSKELETAL: No cyanosis, or edema. Laboratory Laboratory Tests Test 02/08/17 08:10 Potassium Level 3.6 Assessment and Plan Assessment: (1) AVF (arteriovenous fistula) Plan Pt w/ a PMH of ESRD with failing R UE AVF Pt s/p R UE access revision (interposition with 6mm PTFE and superficialization) Pt requests d/c today Plan Discussed and reviewed post operative care Arranged post op f/u Pain Rx written for post op pain management Aye VALENCIA [facility] [phone] Discharge Planning Today per [facility] protocol Arranged post op f/u Aye Pichardo Feb 08, 2017 11:55
[2017-02-08 13:01] VITALS: BP 154/98; PULSE 70; RESP 18; TEMP 98.2; O2SAT 97
--- NOTE | 2017-02-09 11:40 | MP ---
cc: ROSALINDA ALCALA MD DATE OF SURGERY: 02/08/2017 PREOPERATIVE DIAGNOSIS Failing right upper extremity arteriovenous fistula. POSTOPERATIVE DIAGNOSIS Failing right upper extremity arteriovenous fistula. PROCEDURE Right upper extremity access revision (interposition and superficialization of prior brachiocephalic). ATTENDING SURGEON Rosalinda Alcala. CHANGE HOUSE ATTENDANT SURGEON Walter Grimes. ANESTHESIA General. INDICATIONS Ms. Palomino is a 31-year-old lady who has end-stage renal disease. She had a previous right brachiocephalic fistula that is not being used, duplex suggestive of a proximal stenosis. Because of the patient's morbid obesity it is overall quite deep and she is taken to the operating room for access, revision and superficialization. DESCRIPTION OF PROCEDURE Informed consent was obtained from the patient. She was taken to the operating room and placed supine on the operating table. An appropriate timeout was taken to ensure the patient's identity, operative site and planned procedure. The administration of a gram of vancomycin was initiated prior to the skin incision and will be discontinued after a single preoperative dose. Vancomycin was chosen because of the patient's end-stage renal disease. Everyone in the room agreed with the timeout and we proceeded. Her right upper extremity was prepped and draped. An incision was made over the course of the entire fistula and dissected free. Proximally the fistula was noted be 6-7 mm, but then there was a francoise area of sclerosis and the rest of the vein appeared reasonably size diameter in the 4-6 mm range. The entire fistula was dissected free and side branches were ligated with 3-0 silk. The patient was heparinized with 3000 units of IV heparin. Proximal and distal control of the fistula was obtained with profunda clamps and the segment of sclerosis was excised. A 6 mm interposition PTFE was brought up on the field, spatulated and sewn end-to-end proximally and distally. In total about 3 cm of sclerotic fistula was excised and replaced. The clamps were released and both anastomoses were noted to be hemostatic. There was a nice thrill throughout the entire fistula. The under layers of the skin and subcutaneous tissue were re-approximated with running 2-0 Polysorb suture and the skin overlying the fistula was closed with 3-0 Polysorb interrupted suture and 4-0 Monocryl. The sponge and needle counts were correct at the end of the case. Prior to closing the wound the patient was confirmed to have a nice Doppler signal in the wrist and the wound was irrigated, made hemostatic and infiltrated with Marcaine. There were no complications. I was present and scrubbed and performed the entire procedure. MD LONG Gonzalez/LANI /5:57 PM /11:26 AM
== END | disposition home or self-care (01) ==
LOC: HCVO 07:43
PROVIDERS: ATTEND Surgery
DX: T82.858A Stenosis of other vascular prosthetic devices, implants and grafts, initial encounter (principal); N18.6 End stage renal disease; I12.0 Hypertensive chronic kidney disease with stage 5 chronic kidney disease or end stage renal disease; G47.33 Obstructive sleep apnea (adult) (pediatric); E66.01 Morbid (severe) obesity due to excess calories; Z68.43 Body mass index [BMI] 50.0-59.9, adult; Z99.2 Dependence on renal dialysis
CPT/HCPCS: 01844; 36832; 76937; 84132; 86850; 86900; 86901; J1100; J1644; J2270; J2370; J2405; J2710; J2720; J3010; J3370

== ENCOUNTER 2017-03-16 17:31 | Emergency (ER) | payer MEDICARE, MEDICAID ==
[~2017-03-16 17:31] MED LIST changes: -*morphine SULFATE 8 MG/ML PERIprocedure ONLY ONE; -BUPIVACAINE HCL PF 0.5% 30 ML VIAL ONE; -CHLORHEXIDINE GLUCONATE 2 % 1 PACK (2 CLOTHS) TOPICAL PRN; -DEXAMETHASONE SOD PHOS 4 MG/ML VIAL IV ONE; -DO NOT ADM ANY ANTICOAGULANT DRUGS PRN; -GLYCOPYRROLATE 1 MG/5 ML SYRINGE IV PUSH ONE; -HEPARIN SODIUM - IV 10,000 UNITS/10 ML VIAL ONE; -HEPARIN-NS/PF INJ 500 ML ONE; -INSULIN HUMAN REGULAR 1,000 UNITS/10 ML VIAL SQ PRN; -LACTATED RINGER'S 1000 ML IV PRN; -LIDOCAINE HCL 1% PF 5 ML AMPULE OTHER ONE; -METOPROLOL TARTRATE 25 MG TAB PO PRN; -MORPHINE SULFATE 4 MG/ML INJ IV ONE; -NEOSTIGMINE 3 MG/3 ML SYR IV ONE; -ONDANSETRON HCL 4 MG/2 ML VIAL IV PUSH ONE; -ONDANSETRON HCL 4 MG/2 ML VIAL IV PUSH PRN; -PHENYLEPH/NS 1000 MCG/10 ML SYR IV ONE; -POVIDONE IODINE 5% (ANTISEPSIS KIT) 4 APPLICATIONS EACH NARE PRN; -PROPOFOL 200 MG/20 ML AMP IV ONE; -PROTAMINE SULFATE 50 MG/5 ML VIAL ONE; -ROCURONIUM INJ 50 MG/5 ML SYRINGE IV PUSH ONE; -SODIUM CHLORID 0.9% 500 ML IV PRN; -THROMBIN (TOPICAL) 20,000 UNIT SPRAY KIT ONE; -VANCOMYCIN HCL 1000 MG VIAL ONE
[2017-03-16 17:35] VITALS: BP 182/108; PULSE 83; RESP 17; TEMP 98.8; O2SAT 98
[2017-03-16] MEDS ORDERED: traMADol HCL 50 MG TAB PO ONE (18:00)
--- NOTE | 2017-03-16 18:03 | PD ---
HPI Chief Complaint: Hip Injury Time Seen by Provider: 17:51 Travel History International Travel<30 days: No Contact w/Intl Traveler<30days: No Traveled to known affect area: No History of Present Illness HPI 31-year-old female with ESRD on home peritoneal dialysis nightly, here for evaluation of right hip pain. Patient reports worsening right hip pain for the last week. She denies trauma. Pain is currently 5 out of 10, described as throbbing, worse with movements and weightbearing, improved with rest. No fevers or chills. No abdominal pain. No paresthesias or motor deficits. PFSH Past Medical History Asthma: Yes Cancer: No Cardiovascular Problems: Yes (HTN) Chest Pain: No Diabetes: No Dialysis: Yes (PERITONEAL) Endocrine: No Gastrointestinal Disorders: Yes (GERD, ULCERS) Glaucoma: No Genitourinary: Yes (ALMOST NO URINE) Hepatitis: No Hiatal Hernia: No Hypertension: Yes Immune Disorder: No Musculoskeletal: No Neurologic: No Psychiatric: No Reproductive: No Respiratory: Yes (SLEEP APNEA, USES CPAP; TRACH AND ON VENTILATOR 2012) Integumentary: No Thyroid Disease: No : 0 Past Surgical History Abdominal Surgery: Yes (PEG TUBE INSERTED AND REMOVED 2012) AICD: No Body Medical Devices: TENCKHOFF CATH. Cardiac Surgery: No Ear Surgery: No Endocrine Surgery: No Eye Surgery: No Genitourinary Surgery: No Gynecologic Surgery: No Joint Replacement: No Oral Surgery: No Pacemaker: No Thoracic Surgery: Yes (PERM CATH PLACEMENT 2012) Other Surgery: Yes Social History Alcohol Use: No Tobacco Use: No Substance Use: No Allergies-Medications (Allergen,Severity, Reaction): Coded Allergies: metronidazole (Unverified Allergy, Severe, 02/08/17) acetaminophen (Unverified Allergy, Mild, ITCHES, 02/08/17) STARTED ITCHING AFTER TAKING hydrocodone (Unverified Allergy, Mild, ITCHES, 02/08/17) STARTED ITCHING AFTER TAKING penicillin G (Unverified Allergy, Mild, RASH, 02/08/17) Reported Meds & Prescriptions Reported Meds & Active Scripts Active Reported Multi-Vitamin Daily (Multiple Vitamin) 1 Tab Tab Tab PO DAILY Folic Acid 1 Mg Tablet 1 Mg PO DAILY Calcitriol 0.25 Mcg Cap 0.75 Mcg PO TID Metoprolol Tartrate 25 Mg Tab 25 Mg PO BID Amlodipine (Amlodipine Besylate) 10 Mg Tab 10 Mg PO DAILY Renvela Liq (Sevelamer Carbonate) 2.4 Gm Pack 2.4 Gm PO TID Losartan (Losartan Potassium) 100 Mg Tab 100 Mg PO DAILY Pantoprazole (Pantoprazole Sodium) 40 Mg Tab 40 Mg PO DAILY Sprintec 28 (Norgestimate-Ethinyl Estradiol) 0.25-35 mg-Mcg Tab 1 Tab PO DAILY Review of Systems Except as stated in HPI: all other systems reviewed are Neg Physical Exam Narrative GENERAL: Well-developed, well-nourished, comfortable, no apparent distress, overweight. SKIN: Focused skin assessment warm/dry. No rash. RESPIRATORY: No accessory muscle use. Clear to auscultation. Breath sounds equal bilaterally. GASTROINTESTINAL: Abdomen soft, non-tender, nondistended. Peritoneal dialysis catheter in place with clean/dry dressing. MUSCULOSKELETAL: No obvious deformities. No clubbing. No cyanosis. No edema. Mild right lateral hip tenderness without warmth or erythema. Normal range of motion flexion and extension in bilateral lower extremities at the hip and knee joints. The rest of the patient's joints and extremities are without deformity , without tenderness, with normal range of motion. No midline vertebral step- off or tenderness. NEUROLOGICAL: Awake and alert. No obvious cranial nerve deficits. Motor grossly within normal limits. Normal speech. PSYCHIATRIC: Appropriate mood and affect; insight and judgment normal. Data Data Last Documented VS Vital Signs Date Time Temp Pulse Resp B/P (MAP) Pulse Ox O2 Delivery O2 Flow Rate FiO2 03/16/17 17:35 98.8 83 17 182/108 (132) 98 Room Air Orders Orders Tramadol (Ultram) (03/16/17 18:00) Hip, Uni(Ap&Lat) W Ap Pelvis (03/16/17 ) [facility] Medical Decision Making Medical Screen Exam Complete: Yes Emergency Medical Condition: Yes Differential Diagnosis Musculoskeletal pain, renal osteodystrophy, osteoarthritis, septic arthritis unlikely Narrative Course Vital signs show heart rate 83, blood pressure 182/108, pulse ox 90% on room air , oral temp of 98.8F. Right hip and pelvis x-ray: Examination of the right hip was performed with AP Pelvis. The primary and secondary trabecular pattern of the femoral neck is intact. The hip joint is of normal width without significant sclerosis or bony hypertrophy. The acetabulum is grossly intact. CONCLUSION: No acute fracture. The patient was made aware of x-ray findings. Her pain is musculoskeletal in nature. I do not believe she has a septic arthritis. She is afebrile and there is no warmth to the joint. Her pain is mainly over her right lateral hip. She could have a greater trochanteric bursitis. I do not believe she has a DVT. There is no posterior leg pain, tenderness, or swelling. At this point I believe she is stable for discharge home with outpatient follow-up with her primary care physician this week. I will also give her the name of the orthopedist seal extrusion operator with whom to follow-up with for further evaluation. I'll give her prescription for tramadol to take for extreme pain in mainly to help her with sleep. She was also advised to take Tylenol and ibuprofen for her pain. She was informed on when to return to the emergency department. She verbalizes understanding and agreement with plan. Diagnosis Primary Impression: Right hip pain Referrals: Zac Arnold MD 1 week Orthopedist Primary Care Physician 3 days Additional Instructions: Follow-up with your primary care physician this week. Follow-up with orthopedic surgeon Dr. Arnold orthopedist of your choice this week. Return to the emergency department for worsening symptoms or any other concerns as discussed. Scripts Tramadol (Tramadol) 50 Mg Tab 50 MG PO Q8H Y for PAIN, #10 TAB 0 Refills Prov: Vidal Lazcano MD 03/16/17 Disposition: 01 DISCHARGE HOME Condition: Stable Vidal Lazcano MD Mar 16, 2017 18:03
--- NOTE | 2017-03-16 18:21 | RADRPT ---
EXAM DATE/TIME: 03/16/2017 18:10 [facility] COMPARISON: No previous studies available for comparison. INDICATIONS : Right hip pain. No known injury. MEDICAL HISTORY : Renal disease, end stage. SURGICAL HISTORY : Peritoneal catheter. ENCOUNTER: Initial ACUITY: 4 - 6 days PAIN SCORE: 6/10 LOCATION: Right hip. FINDINGS: Examination of the right hip was performed with AP Pelvis. The primary and secondary trabecular ainsley jade of the femoral neck is intact. The hip joint is of normal width without significant sclerosis or bony hypertrophy. The acetabulum is grossly intact. CONCLUSION: No acute fracture. Cj Sanchez MD on March 16, 2017 at 18:18 Board Certified Radiologist. This report was verified electronically.
[2017-03-16] MEDS ORDERED: RESP: ALBUTEROL 2.5 MG/IPRATROPIUM 0.5 MG NEB (SCH) ONE (18:34)
[2017-03-16] MEDS ORDERED: TRAM50TA PO (18:37)
[2017-03-16] MEDS ORDERED: CLON0.1T PO (18:39)
== END 2017-03-16 19:26 | disposition home or self-care (01) ==
LOC: NEPD 17:31
DX: M25.551 Pain in right hip (principal); I12.0 Hypertensive chronic kidney disease with stage 5 chronic kidney disease or end stage renal disease; N18.6 End stage renal disease; Z99.2 Dependence on renal dialysis
CPT/HCPCS: 73502; 99283

== ENCOUNTER 2017-05-09 13:26 | Emergency (ER) | payer MEDICARE, MEDICAID ==
[~2017-05-09] VITALS: Ht 162.6 cm; Wt 134.0 kg
[~2017-05-09 13:26] MED LIST changes: +CLON0.1T PO; +TRAM50TA PO
[2017-05-09 13:28] VITALS: BP 176/110; PULSE 86; RESP 16; TEMP 98.4; O2SAT 99
[2017-05-09 14:05] VITALS: O2SAT 99
[2017-05-09] MEDS ORDERED: SODIUM CHLORIDE 0.9% FLUSH 10 ML FLUSH IV FLUSH PRN (14:15)
[2017-05-09] MEDS ORDERED: ONDANSETRON HCL 4 MG/2 ML VIAL IVP ONE (14:15)
--- NOTE | 2017-05-09 14:23 | PD ---
HPI Chief Complaint: GI Complaint Time Seen by Provider: 13:51 Travel History International Travel<30 days: No Contact w/Intl Traveler<30days: No Traveled to known affect area: No History of Present Illness HPI This is a 31-year-old female who presents to the emergency department with nausea that has been going on for 2 days, constant, moderate severity, worsening throughout today associated with an episode of vomiting this morning causing her to vomit up her blood pressure medications. She does report some epigastric abdominal pain. She denies any fevers or chills and denies any diarrhea. She is in end-stage renal disease patient and is on peritoneal dialysis. She completed her peritoneal dialysis last evening. She does not think she could be and she had a recent menstrual cycle. She denies any vaginal discharge and she does not make any urine. PFSH Past Medical History Asthma: Yes Cancer: No Cardiovascular Problems: Yes Chest Pain: No Diabetes: No Dialysis: Yes (PERITONEAL) Endocrine: No Gastrointestinal Disorders: Yes (GERD, ULCERS) GERD: Yes Glaucoma: No Genitourinary: Yes (ALMOST NO URINE) Hepatitis: No Hiatal Hernia: No Hypertension: Yes Immune Disorder: No Musculoskeletal: No Neurologic: No Psychiatric: No Reproductive: No Respiratory: Yes (SLEEP APNEA, USES CPAP; TRACH AND ON VENTILATOR 2012) Integumentary: No Renal Failure: Yes (ESRD) Thyroid Disease: No Ulcer: Yes ?: Not LMP: 04/29/2017 : 0 Past Surgical History Abdominal Surgery: Yes (PEG TUBE INSERTED AND REMOVED 2012) AICD: No Body Medical Devices: TENCKHOFF CATH. Cardiac Surgery: No Ear Surgery: No Endocrine Surgery: No Eye Surgery: No Genitourinary Surgery: No Gynecologic Surgery: No Joint Replacement: No Oral Surgery: No Pacemaker: No Thoracic Surgery: Yes (PERM CATH PLACEMENT 2012) Other Surgery: Yes (AV FISTULA RIGHT SIDE) Social History Alcohol Use: No Tobacco Use: No Substance Use: No Allergies-Medications (Allergen,Severity, Reaction): Coded Allergies: metronidazole (Unverified Allergy, Severe, 05/09/17) hydrocodone (Unverified Allergy, Mild, ITCHES, 05/09/17) STARTED ITCHING AFTER TAKING penicillin G (Unverified Allergy, Mild, RASH, 05/09/17) Reported Meds & Prescriptions Reported Meds & Active Scripts Active Tramadol (Tramadol HCl) 50 Mg Tab 50 Mg PO Q8H PRN Reported Clonidine (Clonidine HCl) 0.1 Mg Tab 0.1 Mg PO DAILY Multi-Vitamin Daily (Multiple Vitamin) 1 Tab Tab Tab PO DAILY Folic Acid 1 Mg Tablet 1 Mg PO DAILY Calcitriol 0.25 Mcg Cap 0.75 Mcg PO TID Metoprolol Tartrate 25 Mg Tab 25 Mg PO BID Amlodipine (Amlodipine Besylate) 10 Mg Tab 10 Mg PO DAILY Renvela Liq (Sevelamer Carbonate) 2.4 Gm Pack 2.4 Gm PO TID Losartan (Losartan Potassium) 100 Mg Tab 100 Mg PO DAILY Pantoprazole (Pantoprazole Sodium) 40 Mg Tab 40 Mg PO DAILY Sprintec 28 (Norgestimate-Ethinyl Estradiol) 0.25-35 mg-Mcg Tab 1 Tab PO DAILY Review of Systems Except as stated in HPI: all other systems reviewed are Neg Physical Exam Narrative GENERAL:Well appearing, no acute distress SKIN: Focused skin assessment warm and dry. HEAD: Atraumatic. Normocephalic. EYES: Pupils equal and round. No injection or drainage. ENT: Moist mucous membranes NECK: Trachea midline. CARDIOVASCULAR: Regular rate and rhythm. No murmur appreciated. RESPIRATORY: Clear to auscultation. Breath sounds equal bilaterally. GASTROINTESTINAL: Abdomen soft, tender to palpation in the epigastrium with no rebound or guarding. Peritoneal catheter in place in the lower abdomen. MUSCULOSKELETAL: No obvious deformities. NEUROLOGICAL: Awake and alert. No obvious cranial nerve deficits. Moving all extremities. PSYCHIATRIC: Appropriate mood and affect; insight and judgment normal. Data Data Last Documented VS Vital Signs Date Time Temp Pulse Resp B/P (MAP) Pulse Ox O2 Delivery O2 Flow Rate FiO2 05/09/17 14:05 99 Room Air 05/09/17 13:28 98.4 86 16 Orders Orders Beta Hcg (Quant/Titer) (05/09/17 14:03) Complete Blood Count With Diff (05/09/17 14:03) Comprehensive Metabolic Panel (05/09/17 14:03) Lipase (05/09/17 14:03) Us Abdomen Gallbladder (05/09/17 ) Iv Access Insert/Monitor (05/09/17 14:03) Ecg Monitoring (05/09/17 14:03) Oximetry (05/09/17 14:03) Ondansetron Inj (Zofran Inj) (05/09/17 14:15) Sodium Chloride 0.9% Flush (Ns Flush) (05/09/17 14:15) Electrocardiogram (05/09/17 14:03) Calcium Gluconate Inj (Calcium Gluconate (05/09/17 15:45) Labs Laboratory Tests Test 05/09/17 14:15 White Blood Count 8.2 TH/MM3 Red Blood Count 3.74 MIL/MM3 Hemoglobin 9.8 GM/DL Hematocrit 31.2 % Mean Corpuscular Volume 83.6 FL Mean Corpuscular Hemoglobin 26.1 PG Mean Corpuscular Hemoglobin Concent 31.2 % Red Cell Distribution Width 17.1 % Platelet Count 119 TH/MM3 Mean Platelet Volume 10.2 FL Neutrophils (%) (Auto) 72.5 % Lymphocytes (%) (Auto) 15.1 % Monocytes (%) (Auto) 6.8 % Eosinophils (%) (Auto) 4.4 % Basophils (%) (Auto) 1.2 % Neutrophils # (Auto) 5.9 TH/MM3 Lymphocytes # (Auto) 1.2 TH/MM3 Monocytes # (Auto) 0.6 TH/MM3 Eosinophils # (Auto) 0.4 TH/MM3 Basophils # (Auto) 0.1 TH/MM3 CBC Comment DIFF FINAL Differential Comment Blood Urea Nitrogen 80 MG/DL Creatinine 25.76 MG/DL Random Glucose 89 MG/DL Total Protein 8.5 GM/DL Albumin 3.3 GM/DL Calcium Level 6.8 MG/DL Alkaline Phosphatase 71 U/L Aspartate Amino Transf (AST/SGOT) 12 U/L Alanine Aminotransferase (ALT/SGPT) 12 U/L Total Bilirubin 0.4 MG/DL Sodium Level 136 MEQ/L Potassium Level 3.8 MEQ/L Chloride Level 99 MEQ/L Carbon Dioxide Level 19.8 MEQ/L Anion Gap 17 MEQ/L Estimat Glomerular Filtration Rate 2 ML/MIN Protein Corrected Calcium MG/DL Lipase 162 U/L Human Chorionic Gonadotropin, Quant LESS THAN 1 MIU/ML MDM Medical Decision Making Medical Screen Exam Complete: Yes Emergency Medical Condition: Yes Interpretation(s) Afebrile, no tachycardia, hypertensive Anemia which is chronic BUN is 80 and creatinine is 25 which are slightly elevated from prior Calcium is 6.8 Ultrasound demonstrates cholelithiasis but no cholecystitis. Differential Diagnosis Cholecystitis, pancreatitis, , electrolyte abnormality Narrative Course This is a 31-year-old female who presents to the emergency department with nausea that has been going on for 2 days associated with an episode of vomiting this morning where she vomited up her blood pressure medications. She is a peritoneal dialysis patient. She was placed on a monitor and an IV was established. Her Labs appears slightly worse than they have in the past with a bicarb of 20, BUN of 80 and a creatinine of 26. I spoke to Dr. Silva was in school suspension aide for Dr. Bourgeois. He did not recommend any changes currently in her dialysis regimen but he will contact Dr. Bourgeois and Dr. Bourgeois will review the patient and suggest changes if necessary tomorrow. Her ultrasound demonstrates some cholelithiasis but no cholecystitis. I think she is appropriate for outpatient follow-up. She was given clonidine here in the emergency department and will be discharged on Zofran. Diagnosis Primary Impression: Nausea Patient Instructions: General Instructions Additional Instructions: If you develop severe or worsening abdominal pain, fever>100.4, persistent vomiting or inability to eat or drink return to the emergency department immediately. Follow-up with Dr. Bourgeois as soon as possible to see if he wants to make changes to your dialysis regimen. Med/Other Pt SpecificInfo: Prescription(s) given Scripts Ondansetron Odt (Zofran Odt) 4 Mg Tab 4 MG SL Q6HR Y for Nausea/Vomiting, #15 TAB 0 Refills Prov: Kimberlee Wilkinson MD 05/09/17 Disposition: 01 DISCHARGE HOME Condition: Stable Kimberlee Wilkinson MD May 09, 2017 14:23
[2017-05-09 14:33] LABS: AUTOMATED NEUTROPHIL # 5.9 TH/MM3 (1.8-7.7); BASOPHIL # 0.1 TH/MM3 (0-0.2); BASOPHIL % 1.2 % (0.0-2.0); EOSINOPHIL # 0.4 TH/MM3 (0-0.4); EOSINOPHIL % 4.4 % (0.0-4.0); HEMATOCRIT 31.2 % (35.0-46.0); HEMOGLOBIN 9.8 GM/DL (11.6-15.3); LYMPH % 15.1 % (9.0-44.0); LYMPHOCYTE # 1.2 TH/MM3 (1.0-4.8); MEAN CELL VOLUME 83.6 FL (80.0-100.0); MEAN CORPUSCULAR HEMOGLOBIN 26.1 PG (27.0-34.0); MEAN CORPUSCULAR HGB CONC 31.2 % (32.0-36.0); MEAN PLATELET VOLUME 10.2 FL (7.0-11.0); MONO % 6.8 % (0.0-8.0); MONOCYTE # 0.6 TH/MM3 (0-0.9); NEUT % 72.5 % (16.0-70.0); PLATELET COUNT 119 TH/MM3 (150-450); RED BLOOD COUNT 3.74 MIL/MM3 (4.00-5.30); RED CELL DISTRIBUTION WIDTH 17.1 % (11.6-17.2); WHITE BLOOD COUNT 8.2 TH/MM3 (4.0-11.0)
[2017-05-09 15:00] LABS: ALBUMIN 3.3 GM/DL (3.4-5.0); ALKALINE PHOSPHATASE 71 U/L (45-117); ALT (GPT) 12 U/L (10-53); AST (GOT) 12 U/L (15-37); BICARBONATE 19.8 MEQ/L (21.0-32.0); BLOOD UREA NITROGEN 80 MG/DL (7-18); CHLORIDE 99 MEQ/L (98-107); GLOMERULAR FILTRATION RATE 2 ML/MIN (>89); GLUCOSE,RANDOM 89 MG/DL (74-106); LIPASE 162 U/L (73-393); SODIUM (NA) 136 MEQ/L (136-145); TOTAL BILIRUBIN ADULT 0.4 MG/DL (0.2-1.0); TOTAL PROTEIN 8.5 GM/DL (6.4-8.2)
[2017-05-09 15:04] LABS: CALCIUM 6.8 MG/DL (8.5-10.1); CREATININE 25.76 MG/DL (0.50-1.00)
[2017-05-09] MEDS ORDERED: CALCIUM GLUCONATE INJ 2 GM in DEXTROSE 5% IN WATER 100ML INJ 100 ML IV ONE ×2 (15:45)
--- NOTE | 2017-05-09 15:57 | RADRPT ---
EXAM DATE/TIME: 05/09/2017 15:23 [facility] COMPARISON: No previous studies available for comparison. INDICATIONS : Right upper quadrant pain. MEDICAL HISTORY : Hypertension. Gastroesophageal reflux disease. Sleep apnea. Asthma. Renal disease. Dialysis. SURGICAL HISTORY : Chest surgery. AV fistula. ENCOUNTER: Initial ACUITY: 3 days PAIN SCORE: 4/10 LOCATION: Right upper quadrant MEASUREMENTS: LIVER: 17.5 cm length COMMON DUCT: 3 mm RIGHT KIDNEY: 7.6 x 3.7 x 3.8 cm FINDINGS: LIVER: Normal echotexture without focal lesion or ductal dilatation. COMMON DUCT: No intraluminal mass or stone visualized. GALLBLADDER: Contains multiple stones, demonstrates no wall thickening or pericholecystic fluid. PANCREAS: The visualized portions are within normal limits. RIGHT KIDNEY: Echogenic small right kidney. No evidence of hydronephrosis, stone, or mass. CONCLUSION: 1. Cholelithiasis without gallbladder wall thickening or pericholecystic fluid. 2. Small atrophic right kidney. Cj Sanchez MD on May 09, 2017 at 15:53 Board Certified Radiologist. This report was verified electronically.
[2017-05-09] MEDS ORDERED: ZOFR4TAB3 SL (16:29)
[2017-05-09] MEDS ORDERED: cloNIDine HCL 0.1 MG TAB PO ONE (16:45)
--- NOTE | 2017-05-10 19:45 | EKG ---
Date Performed: 05/09/2017 Time Performed: 14:52:12 PTAGE: 31 years EKG: Sinus rhythm LEFT VENTRICULAR HYPERTROPHY AND ST-T CHANGE ABNORMAL ECG PREVIOUS TRACING : 02/05/2017 12.10 Since previous tracing, no significant change noted DOCTOR: Susy Mcginnis Interpretating Date/Time 05/10/2017 19:43:20
== END 2017-05-09 16:52 | disposition home or self-care (01) ==
LOC: NEPC 13:26
DX: K80.20 Calculus of gallbladder without cholecystitis without obstruction (principal); D64.9 Anemia, unspecified; I12.0 Hypertensive chronic kidney disease with stage 5 chronic kidney disease or end stage renal disease; N18.6 End stage renal disease; J45.909 Unspecified asthma, uncomplicated; K21.9 Gastro-esophageal reflux disease without esophagitis; G47.30 Sleep apnea, unspecified; Z99.2 Dependence on renal dialysis; Z88.0 Allergy status to penicillin
CPT/HCPCS: 76705; 80053; 83690; 84702; 85025; 93005; 96374; 99285; J2405

== ENCOUNTER 2017-08-12 16:58 | Emergency (ER) | payer MEDICARE, MEDICAID ==
[~2017-08-12 16:58] MED LIST changes: +ZOFR4TAB3 SL
[2017-08-12 17:08] VITALS: BP 175/103; PULSE 82; RESP 18; TEMP 98.3; O2SAT 100
--- NOTE | 2017-08-12 17:33 | PD ---
HPI Chief Complaint: GI Complaint Time Seen by Provider: 17:27 Travel History International Travel<30 days: No Contact w/Intl Traveler<30days: No Traveled to known affect area: No History of Present Illness HPI 31-year-old -[place] female presents emergency department with 2 day history of nausea and vomiting without fever. Patient has history of stage 4 renal disease. Patient is on peritoneal dialysis. She states no specific abdominal pain. She is unsure as she has intermittent spotting for the past year. PFSH Past Medical History Asthma: Yes Cancer: No Cardiovascular Problems: Yes Chest Pain: No Diabetes: No Dialysis: Yes (PERITONEAL) Endocrine: No Gastrointestinal Disorders: Yes (GERD, ULCERS) GERD: Yes Glaucoma: No Genitourinary: Yes (ALMOST NO URINE) Hepatitis: No Hiatal Hernia: No Hypertension: Yes Immune Disorder: No Musculoskeletal: No Neurologic: No Psychiatric: No Reproductive: No Respiratory: Yes (SLEEP APNEA, USES CPAP; TRACH AND ON VENTILATOR 2012) Integumentary: No Renal Failure: Yes (ESRD) Thyroid Disease: No Ulcer: Yes ?: Not : 0 Past Surgical History Abdominal Surgery: Yes (PEG TUBE INSERTED AND REMOVED 2012) AICD: No Body Medical Devices: TENCKHOFF CATH. Cardiac Surgery: No Ear Surgery: No Endocrine Surgery: No Eye Surgery: No Genitourinary Surgery: No Gynecologic Surgery: No Joint Replacement: No Oral Surgery: No Pacemaker: No Thoracic Surgery: Yes (PERM CATH PLACEMENT 2012) Other Surgery: Yes (AV FISTULA RIGHT SIDE) Social History Alcohol Use: No Tobacco Use: No Substance Use: No Allergies-Medications (Allergen,Severity, Reaction): Coded Allergies: metronidazole (Unverified Allergy, Severe, 08/12/17) hydrocodone (Unverified Allergy, Mild, ITCHES, 08/12/17) STARTED ITCHING AFTER TAKING penicillin G (Unverified Allergy, Mild, RASH, 08/12/17) Reported Meds & Prescriptions Reported Meds & Active Scripts Active Zofran Odt (Ondansetron Odt) 4 Mg Tab 4 Mg SL Q6HR PRN Tramadol (Tramadol HCl) 50 Mg Tab 50 Mg PO Q8H PRN Reported Clonidine (Clonidine HCl) 0.1 Mg Tab 0.1 Mg PO DAILY Multi-Vitamin Daily (Multiple Vitamin) 1 Tab Tab Tab PO DAILY Folic Acid 1 Mg Tablet 1 Mg PO DAILY Calcitriol 0.25 Mcg Cap 0.75 Mcg PO TID Metoprolol Tartrate 25 Mg Tab 25 Mg PO BID Amlodipine (Amlodipine Besylate) 10 Mg Tab 10 Mg PO DAILY Renvela Liq (Sevelamer Carbonate) 2.4 Gm Pack 2.4 Gm PO TID Losartan (Losartan Potassium) 100 Mg Tab 100 Mg PO DAILY Pantoprazole (Pantoprazole Sodium) 40 Mg Tab 40 Mg PO DAILY Sprintec 28 (Norgestimate-Ethinyl Estradiol) 0.25-35 mg-Mcg Tab 1 Tab PO DAILY Review of Systems Except as stated in HPI: all other systems reviewed are Neg General / Constitutional: No: Fever, Chills Eyes: No: Visual changes HENT: No: Headaches Cardiovascular: No: Chest Pain or Discomfort Respiratory: No: Shortness of Breath Gastrointestinal: Positive: Nausea, Vomiting, No: Diarrhea, Abdominal Pain Genitourinary: Positive: Decreased Urinary Output, No: Dysuria Musculoskeletal: No: Pain Skin: No Rash Neurologic: No: Weakness Psychiatric: No: Depression Endocrine: No: Polydipsia Hematologic/Lymphatic: No: Easy Bruising Physical Exam Narrative GENERAL: Moderately obese female in no obvious distress. SKIN: Warm and dry. Normal color. Normal turgor. HEAD: Atraumatic. Normocephalic. EYES: Pupils equal and round. No scleral icterus. No injection or drainage. ENT: No nasal bleeding or discharge. Mucous membranes pink and moist. Pharynx is clear. Airways patent. NECK: Trachea midline. Supple nontender. CARDIOVASCULAR: Regular rate and rhythm. RESPIRATORY: No accessory muscle use. Clear to auscultation. Breath sounds equal bilaterally. GASTROINTESTINAL: Abdomen soft, non-tender, nondistended. Hepatic and splenic margins not palpable. MUSCULOSKELETAL: Extremities without clubbing, cyanosis, or edema. No obvious deformities. NEUROLOGICAL: Awake and alert. No obvious cranial nerve deficits. Motor grossly within normal limits. Five out of 5 muscle strength in the arms and legs. Normal speech. PSYCHIATRIC: Appropriate mood and affect; insight and judgment normal. Data Data Last Documented VS Vital Signs Date Time Temp Pulse Resp B/P (MAP) Pulse Ox O2 Delivery O2 Flow Rate FiO2 08/12/17 17:54 16 98 Room Air 08/12/17 17:08 98.3 82 175/103 (127) Orders Orders Complete Blood Count With Diff (08/12/17 17:34) Comprehensive Metabolic Panel (08/12/17 17:34) Lipase (08/12/17 17:34) Lactic Acid (08/12/17 17:34) Prothrombin Time / Inr (Pt) (08/12/17 17:34) Act Partial Throm Time (Ptt) (08/12/17 17:34) Iv Access Insert/Monitor (08/12/17 17:34) Ecg Monitoring (08/12/17 17:34) Oximetry (08/12/17 17:34) Ondansetron Inj (Zofran Inj) (08/12/17 17:45) Sodium Chlor 0.9% 1000 Ml Inj (Ns 1000 M (08/12/17 17:34) Chest, Single Ap (08/12/17 17:34) Famotidine Inj (Pepcid Inj) (08/12/17 17:45) Ed Urine Pregnancytest Poc (08/12/17 17:34) Ct Abd/Pel W/O Iv Contrast (08/12/17 17:40) Sodium Chlorid 0.9% 500 Ml Inj (Ns 500 M (08/12/17 18:00) Beta Hcg (Quant/Titer) (08/12/17 18:50) Labs Laboratory Tests Test 08/12/17 17:50 White Blood Count 5.6 TH/MM3 Red Blood Count 5.14 MIL/MM3 Hemoglobin 13.5 GM/DL Hematocrit 42.2 % Mean Corpuscular Volume 82.1 FL Mean Corpuscular Hemoglobin 26.3 PG Mean Corpuscular Hemoglobin Concent 32.1 % Red Cell Distribution Width 16.8 % Platelet Count 111 TH/MM3 Mean Platelet Volume 11.3 FL Neutrophils (%) (Auto) 74.5 % Lymphocytes (%) (Auto) 15.7 % Monocytes (%) (Auto) 8.4 % Eosinophils (%) (Auto) 0.7 % Basophils (%) (Auto) 0.7 % Neutrophils # (Auto) 4.2 TH/MM3 Lymphocytes # (Auto) 0.9 TH/MM3 Monocytes # (Auto) 0.5 TH/MM3 Eosinophils # (Auto) 0.0 TH/MM3 Basophils # (Auto) 0.0 TH/MM3 CBC Comment DIFF FINAL Differential Comment Prothrombin Time 11.7 SEC Prothromb Time International Ratio 1.2 RATIO Activated Partial Thromboplast Time 30.5 SEC Blood Urea Nitrogen 58 MG/DL Creatinine 25.90 MG/DL Random Glucose 93 MG/DL Total Protein 9.2 GM/DL Albumin 3.6 GM/DL Calcium Level 6.7 MG/DL Alkaline Phosphatase 61 U/L Aspartate Amino Transf (AST/SGOT) 17 U/L Alanine Aminotransferase (ALT/SGPT) 15 U/L Total Bilirubin 0.5 MG/DL Sodium Level 138 MEQ/L Potassium Level 3.5 MEQ/L Chloride Level 95 MEQ/L Carbon Dioxide Level 17.8 MEQ/L Anion Gap 25 MEQ/L Estimat Glomerular Filtration Rate 2 ML/MIN Lactic Acid Level 0.4 mmol/L Protein Corrected Calcium MG/DL Lipase 111 U/L MDM Medical Decision Making Medical Screen Exam Complete: Yes Emergency Medical Condition: Yes Medical Record Reviewed: Yes Differential Diagnosis Acute nausea vomiting. Dehydration. History of renal failure. Stage IV renal disease. Electrolyte imbalance. Narrative Course Labs ordered including CBC, CMP, beta hCG. IV access is obtained and the patient is given 500 mL of normal saline bolus. Patient is given 20 mg famotidine IV, as well as [address] of the abdomen and pelvis without IV contrast is ordered per CBC is fairly unremarkable except for low platelet count. Coagulation studies show PT of 11.7, INR 1.2, APTT is 30.5 Chemistries remarkable for chloride of 95, carbon dioxide 17.8, anion gap is 25 , BUN is 58, creatinine is 25.9, GFR is 2 lactic acid 0.4, calcium is 6.7. Total protein is 9.2. Patient will require admission for nephrology consult and dialysis. 1900 hrs. change of shift, care of the patient will be turned over to Anand Jerez PA-C for admission. Condition: Stable Mook Suarez Aug 12, 2017 17:33
[2017-08-12] MEDS ORDERED: SODIUM CHLOR 0.9% 1000 ML INJ 1,000 ML IV SCH (17:34)
[2017-08-12] MEDS ORDERED: ONDANSETRON HCL 4 MG/2 ML VIAL IVP ONE (17:45)
[2017-08-12] MEDS ORDERED: FAMOTIDINE 20 MG/2 ML VIAL IV PUSH ONE (17:45)
[2017-08-12 17:54] VITALS: RESP 16; O2SAT 98
[2017-08-12] MEDS ORDERED: SODIUM CHLORID 0.9% 500 ML INJ 500 ML IV ONE (18:00)
--- NOTE | 2017-08-12 18:07 | RADRPT ---
EXAM DATE/TIME: 08/12/2017 17:40 [facility] COMPARISON: CHEST PA & LAT, February 05, 2017, 12:31. INDICATIONS : Dizziness; nausea and vomiting for 2 days. MEDICAL HISTORY : None. SURGICAL HISTORY : None. ENCOUNTER: Initial ACUITY: 2 days PAIN SCORE: 0/10 LOCATION: Bilateral chest FINDINGS: A single view of the chest demonstrates the lungs to be symmetrically aerated without evidence of mas s, infiltrate or effusion. The cardiomediastinal contours are unremarkable. Osseous structures are intact. CONCLUSION: No evidence of acute cardiopulmonary disease. Jorgito Duncan MD on August 12, 2017 at 18:04 Board Certified Radiologist. This report was verified electronically.
[2017-08-12 18:19] LABS: AUTOMATED NEUTROPHIL # 4.2 TH/MM3 (1.8-7.7); BASOPHIL % 0.7 % (0.0-2.0); EOSINOPHIL % 0.7 % (0.0-4.0); HEMATOCRIT 42.2 % (35.0-46.0); HEMOGLOBIN 13.5 GM/DL (11.6-15.3); LYMPH % 15.7 % (9.0-44.0); LYMPHOCYTE # 0.9 TH/MM3 (1.0-4.8); MEAN CELL VOLUME 82.1 FL (80.0-100.0); MEAN CORPUSCULAR HEMOGLOBIN 26.3 PG (27.0-34.0); MEAN CORPUSCULAR HGB CONC 32.1 % (32.0-36.0); MEAN PLATELET VOLUME 11.3 FL (7.0-11.0); MONO % 8.4 % (0.0-8.0); MONOCYTE # 0.5 TH/MM3 (0-0.9); NEUT % 74.5 % (16.0-70.0); PLATELET COUNT 111 TH/MM3 (150-450); RED BLOOD COUNT 5.14 MIL/MM3 (4.00-5.30); RED CELL DISTRIBUTION WIDTH 16.8 % (11.6-17.2); WHITE BLOOD COUNT 5.6 TH/MM3 (4.0-11.0)
[2017-08-12 18:50] LABS: INTERNATIONAL NORMALIZED RATIO 1.2 RATIO; PROTHROMBIN TIME - PATIENT 11.7 SEC (9.8-11.6)
[2017-08-12 18:51] LABS: ALBUMIN 3.6 GM/DL (3.4-5.0); BICARBONATE 17.8 MEQ/L (21.0-32.0); TOTAL BILIRUBIN ADULT 0.5 MG/DL (0.2-1.0); TOTAL PROTEIN 9.2 GM/DL (6.4-8.2)
[2017-08-12 18:54] LABS: CALCIUM 6.7 MG/DL (8.5-10.1); CREATININE 25.9 MG/DL (0.50-1.00)
[2017-08-12 19:38] VITALS: BP 168/98; PULSE 80; RESP 16; O2SAT 99
[2017-08-12] MEDS ORDERED: PROMETHAZINE INJ 25 MG/ML VIAL IM ONE (20:00)
--- NOTE | 2017-08-12 20:03 | PD ---
Physical Exam Date Seen by Provider: Aug 12, 2017 Time Seen by Provider: 20:01 Narrative GENERAL: This is a well-nourished, well-developed patient, in no apparent distress. SKIN: No rashes, ecchymoses or lesions. Warm and dry. HEAD: Atraumatic. Normocephalic. EYES: PERRL, EOMI, no discharge or injection. No scleral icterus. EARS: Clear NOSE: Nasal turbinates appear normal. THROAT: Mucosa pink and moist. Airway patent. NECK: Trachea midline. supple, moves head freely. LUNGS: Clear to auscultation. CV: Regular in rhythm. ABDOMEN: Soft nontender. No guarding no rebound. Dialysis catheter in the lower abdomen EXT: No clubbing cyanosis or edema. Data Data Last Documented VS Vital Signs Date Time Temp Pulse Resp B/P (MAP) Pulse Ox O2 Delivery O2 Flow Rate FiO2 08/12/17 19:38 80 16 168/98 (121) 99 Room Air 08/12/17 17:08 98.3 Orders Orders Complete Blood Count With Diff (08/12/17 17:34) Comprehensive Metabolic Panel (08/12/17 17:34) Lipase (08/12/17 17:34) Lactic Acid (08/12/17 17:34) Prothrombin Time / Inr (Pt) (08/12/17 17:34) Act Partial Throm Time (Ptt) (08/12/17 17:34) Iv Access Insert/Monitor (08/12/17 17:34) Ecg Monitoring (08/12/17 17:34) Oximetry (08/12/17 17:34) Ondansetron Inj (Zofran Inj) (08/12/17 17:45) Sodium Chlor 0.9% 1000 Ml Inj (Ns 1000 M (08/12/17 17:34) Chest, Single Ap (08/12/17 17:34) Famotidine Inj (Pepcid Inj) (08/12/17 17:45) Ed Urine Pregnancytest Poc (08/12/17 17:34) Ct Abd/Pel W/O Iv Contrast (08/12/17 17:40) Sodium Chlorid 0.9% 500 Ml Inj (Ns 500 M (08/12/17 18:00) Beta Hcg (Quant/Titer) (08/12/17 18:50) Promethazine Inj (Phenergan Inj) (08/12/17 20:00) Ed Discharge Order (08/12/17 20:22) Labs Laboratory Tests Test 08/12/17 17:50 White Blood Count 5.6 TH/MM3 Red Blood Count 5.14 MIL/MM3 Hemoglobin 13.5 GM/DL Hematocrit 42.2 % Mean Corpuscular Volume 82.1 FL Mean Corpuscular Hemoglobin 26.3 PG Mean Corpuscular Hemoglobin Concent 32.1 % Red Cell Distribution Width 16.8 % Platelet Count 111 TH/MM3 Mean Platelet Volume 11.3 FL Neutrophils (%) (Auto) 74.5 % Lymphocytes (%) (Auto) 15.7 % Monocytes (%) (Auto) 8.4 % Eosinophils (%) (Auto) 0.7 % Basophils (%) (Auto) 0.7 % Neutrophils # (Auto) 4.2 TH/MM3 Lymphocytes # (Auto) 0.9 TH/MM3 Monocytes # (Auto) 0.5 TH/MM3 Eosinophils # (Auto) 0.0 TH/MM3 Basophils # (Auto) 0.0 TH/MM3 CBC Comment DIFF FINAL Differential Comment Prothrombin Time 11.7 SEC Prothromb Time International Ratio 1.2 RATIO Activated Partial Thromboplast Time 30.5 SEC Blood Urea Nitrogen 58 MG/DL Creatinine 25.90 MG/DL Random Glucose 93 MG/DL Total Protein 9.2 GM/DL Albumin 3.6 GM/DL Calcium Level 6.7 MG/DL Alkaline Phosphatase 61 U/L Aspartate Amino Transf (AST/SGOT) 17 U/L Alanine Aminotransferase (ALT/SGPT) 15 U/L Total Bilirubin 0.5 MG/DL Sodium Level 138 MEQ/L Potassium Level 3.5 MEQ/L Chloride Level 95 MEQ/L Carbon Dioxide Level 17.8 MEQ/L Anion Gap 25 MEQ/L Estimat Glomerular Filtration Rate 2 ML/MIN Lactic Acid Level 0.4 mmol/L Protein Corrected Calcium MG/DL Lipase 111 U/L Human Chorionic Gonadotropin, Quant LESS THAN 1 MIU/ML [facility] Medical Record Reviewed: Yes Supervised Visit with EDGAR: Yes Interpretation(s) Last 24 hours Impressions Abdomen/Pelvis CT 08/12/17 [id number] Signed Impressions: Service Date/Time: July 19:45 - CONCLUSION: 1. Nonspecific hepatosplenomegaly. 2. Peritoneal dialysis catheter without evidence of an acute complication. Trace free fluid in the pelvic cavity, not unexpected. No perceptible inflammatory changes. Jorgito Duncan MD Chest X-Ray 08/12/17 [id number] Signed Impressions: Service Date/Time: July 17:40 - CONCLUSION: No evidence of acute cardiopulmonary disease. Jorgito Duncan MD Laboratory Tests Test 08/12/17 17:50 White Blood Count 5.6 TH/MM3 Red Blood Count 5.14 MIL/MM3 Hemoglobin 13.5 GM/DL Hematocrit 42.2 % Mean Corpuscular Volume 82.1 FL Mean Corpuscular Hemoglobin 26.3 PG Mean Corpuscular Hemoglobin Concent 32.1 % Red Cell Distribution Width 16.8 % Platelet Count 111 TH/MM3 Mean Platelet Volume 11.3 FL Neutrophils (%) (Auto) 74.5 % Lymphocytes (%) (Auto) 15.7 % Monocytes (%) (Auto) 8.4 % Eosinophils (%) (Auto) 0.7 % Basophils (%) (Auto) 0.7 % Neutrophils # (Auto) 4.2 TH/MM3 Lymphocytes # (Auto) 0.9 TH/MM3 Monocytes # (Auto) 0.5 TH/MM3 Eosinophils # (Auto) 0.0 TH/MM3 Basophils # (Auto) 0.0 TH/MM3 CBC Comment DIFF FINAL Differential Comment Prothrombin Time 11.7 SEC Prothromb Time International Ratio 1.2 RATIO Activated Partial Thromboplast Time 30.5 SEC Blood Urea Nitrogen 58 MG/DL Creatinine 25.90 MG/DL Random Glucose 93 MG/DL Total Protein 9.2 GM/DL Albumin 3.6 GM/DL Calcium Level 6.7 MG/DL Alkaline Phosphatase 61 U/L Aspartate Amino Transf (AST/SGOT) 17 U/L Alanine Aminotransferase (ALT/SGPT) 15 U/L Total Bilirubin 0.5 MG/DL Sodium Level 138 MEQ/L Potassium Level 3.5 MEQ/L Chloride Level 95 MEQ/L Carbon Dioxide Level 17.8 MEQ/L Anion Gap 25 MEQ/L Estimat Glomerular Filtration Rate 2 ML/MIN Lactic Acid Level 0.4 mmol/L Protein Corrected Calcium MG/DL Lipase 111 U/L Human Chorionic Gonadotropin, Quant LESS THAN 1 MIU/ML Differential Diagnosis Differential diagnosis: Nausea, vomiting, pancreatitis, peritonitis, worsening renal function, electrolyte abnormality, dehydration Narrative Course IV access is obtained. Patient was given 500 cc bolus normal saline. Zofran 4 mg IV. Patient has been able to take some p.o. fluid. She does have some mild nausea. She is given a second dose of antiemetic of Phenergan 25 mg IM. Patient's abdomen is soft and nontender. She is feeling improved. CT of the abdomen is pending. Laboratory tests show elevated anion gap but she looks very well-appearing. Diagnosis Primary Impression: Vomiting Additional Impression: Dehydration Patient Instructions: General Instructions Additional Instruction: Rest. Zofran for nausea vomiting. Notify your dialysis doctor of your visit today. Recheck the next 1-2 days. Return to the ER if any problems. Med/Other Pt SpecificInfo: Prescription(s) given Scripts Ondansetron Odt (Zofran Odt) 4 Mg Tab 4 MG SL Q8HR Y for Nausea/Vomiting, #6 TAB 0 Refills Prov: Murali Andrew MD 08/12/17 Disposition: 01 DISCHARGE HOME Condition: Stable Drew Aguirre Aug 12, 2017 20:03
--- NOTE | 2017-08-12 20:05 | PD ---
Data Data Last Documented VS Vital Signs Date Time Temp Pulse Resp B/P (MAP) Pulse Ox O2 Delivery O2 Flow Rate FiO2 08/12/17 20:31 81 18 174/89 (117) 100 08/12/17 19:38 Room Air 08/12/17 17:08 98.3 Orders Orders Complete Blood Count With Diff (08/12/17 17:34) Comprehensive Metabolic Panel (08/12/17 17:34) Lipase (08/12/17 17:34) Lactic Acid (08/12/17 17:34) Prothrombin Time / Inr (Pt) (08/12/17 17:34) Act Partial Throm Time (Ptt) (08/12/17 17:34) Iv Access Insert/Monitor (08/12/17 17:34) Ecg Monitoring (08/12/17 17:34) Oximetry (08/12/17 17:34) Ondansetron Inj (Zofran Inj) (08/12/17 17:45) Sodium Chlor 0.9% 1000 Ml Inj (Ns 1000 M (08/12/17 17:34) Chest, Single Ap (08/12/17 17:34) Famotidine Inj (Pepcid Inj) (08/12/17 17:45) Ed Urine Pregnancytest Poc (08/12/17 17:34) Ct Abd/Pel W/O Iv Contrast (08/12/17 17:40) Sodium Chlorid 0.9% 500 Ml Inj (Ns 500 M (08/12/17 18:00) Beta Hcg (Quant/Titer) (08/12/17 18:50) Promethazine Inj (Phenergan Inj) (08/12/17 20:00) Ed Discharge Order (08/12/17 20:22) Labs Laboratory Tests Test 08/12/17 17:50 White Blood Count 5.6 TH/MM3 Red Blood Count 5.14 MIL/MM3 Hemoglobin 13.5 GM/DL Hematocrit 42.2 % Mean Corpuscular Volume 82.1 FL Mean Corpuscular Hemoglobin 26.3 PG Mean Corpuscular Hemoglobin Concent 32.1 % Red Cell Distribution Width 16.8 % Platelet Count 111 TH/MM3 Mean Platelet Volume 11.3 FL Neutrophils (%) (Auto) 74.5 % Lymphocytes (%) (Auto) 15.7 % Monocytes (%) (Auto) 8.4 % Eosinophils (%) (Auto) 0.7 % Basophils (%) (Auto) 0.7 % Neutrophils # (Auto) 4.2 TH/MM3 Lymphocytes # (Auto) 0.9 TH/MM3 Monocytes # (Auto) 0.5 TH/MM3 Eosinophils # (Auto) 0.0 TH/MM3 Basophils # (Auto) 0.0 TH/MM3 CBC Comment DIFF FINAL Differential Comment Prothrombin Time 11.7 SEC Prothromb Time International Ratio 1.2 RATIO Activated Partial Thromboplast Time 30.5 SEC Blood Urea Nitrogen 58 MG/DL Creatinine 25.90 MG/DL Random Glucose 93 MG/DL Total Protein 9.2 GM/DL Albumin 3.6 GM/DL Calcium Level 6.7 MG/DL Alkaline Phosphatase 61 U/L Aspartate Amino Transf (AST/SGOT) 17 U/L Alanine Aminotransferase (ALT/SGPT) 15 U/L Total Bilirubin 0.5 MG/DL Sodium Level 138 MEQ/L Potassium Level 3.5 MEQ/L Chloride Level 95 MEQ/L Carbon Dioxide Level 17.8 MEQ/L Anion Gap 25 MEQ/L Estimat Glomerular Filtration Rate 2 ML/MIN Lactic Acid Level 0.4 mmol/L Protein Corrected Calcium MG/DL Lipase 111 U/L Human Chorionic Gonadotropin, Quant LESS THAN 1 MIU/ML MDM Supervised Visit with EDGAR: Yes Narrative Course I, Dr. Andrew, have reviewed the advance practice practitioner's documentation and am in agreement, met with the patient face to face, made the diagnosis, and the medical decision making was done by me. *My assessment and Findings: Patient seen and examined by me in addition to Karthikeyan Suarez and Drwe Jerez, this is a 31-year-old female with a history of hypertensive nephropathy and is on peritoneal dialysis nightly, she states usually takes off about 2 L of fluid. She presents emergency department today with nausea and vomiting, has some mild acidosis, was given gentle IV hydration here. On my examination patient's appears comfortable, her abdomen is completely benign and very soft to the point where I can palpate deeply without any tenderness at all. CT is negative. 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 Neil by phone tomorrow for further recommendations. Otherwise she is stable for discharge at this time. Scripts Ondansetron Odt (Zofran Odt) 4 Mg Tab 4 MG SL Q8HR Y for Nausea/Vomiting, #6 TAB 0 Refills Prov: Murali Andrew MD 08/12/17 Disposition: 01 DISCHARGE HOME Condition: Stable Murali Andrew MD Aug 12, 2017 20:05
--- NOTE | 2017-08-12 20:08 | RADRPT ---
EXAM DATE/TIME: 08/12/2017 19:45 [facility] COMPARISON: US ABDOMEN - GALLBLADDER, May 09, 2017, 15:23. INDICATIONS : Abdominal pain, vomiting ORAL CONTRAST: No oral contrast ingested. RADIATION DOSE: 25.47 CTDIvol (mGy) MEDICAL HISTORY : Cardiovascular disease. Hypertension. Ulcers.Stage 4 renal failure, peritoneal dialysis SURGICAL HISTORY : None. ENCOUNTER: Initial ACUITY: 1 day PAIN SCALE: 7/10 LOCATION: Abdomen TECHNIQUE: Volumetric scanning of the abdomen and pelvis was performed. Using automated exposure control and ad justment of the mA and/or kV according to patient size, radiation dose was kept as low as reasonably achievable to obtain optimal diagnostic quality images. DICOM format image data is available electro nically for review and comparison. FINDINGS: LOWER LUNGS: The visualized lower lungs are clear. LIVER: Homogeneous density without lesion. 21.5 cm craniocaudal. There is no dilation of the biliary tree. Vague gallstones. No ductal dilatation or perceptible inflammatory changes. SPLEEN: 13.3 cm craniocaudal. No focal lesion. PANCREAS: Within normal limits. KIDNEYS: Kidneys are atrophic. There is a peritoneal dialysis catheter coiled in the pelvic cavity. Trace free fluid in the pelvic cul-de-sac. Nothing organized or drainable. ADRENAL GLANDS: Within normal limits. VASCULAR: There is no aortic aneurysm. BOWEL/MESENTERY: The stomach, small bowel, and colon demonstrate no acute abnormality. There is no free intraperitone al air or fluid. Normal appendix. ABDOMINAL WALL: Within normal limits. RETROPERITONEUM: There is no lymphadenopathy. BLADDER: No wall thickening or mass. REPRODUCTIVE: Within normal limits. INGUINAL: There is no lymphadenopathy or hernia. MUSCULOSKELETAL: Within normal limits for patient age. CONCLUSION: 1. Nonspecific hepatosplenomegaly. 2. Peritoneal dialysis catheter without evidence of an acute complication. Trace free fluid in the pe lvic cavity, not unexpected. No perceptible inflammatory changes. Jorgito Duncan MD on August 12, 2017 at 20:02 Board Certified Radiologist. This report was verified electronically.
[2017-08-12] MEDS ORDERED: ZOFR4TAB3 SL (20:23)
[2017-08-12 20:31] VITALS: BP 174/89
== END 2017-08-12 20:49 | disposition home or self-care (01) ==
LOC: NEPD 16:58
DX: R11.2 Nausea with vomiting, unspecified (principal); E86.0 Dehydration; E87.2 Acidosis; I12.9 Hypertensive chronic kidney disease with stage 1 through stage 4 chronic kidney disease, or unspecified chronic kidney disease; N18.4 Chronic kidney disease, stage 4 (severe); Z99.2 Dependence on renal dialysis; K21.9 Gastro-esophageal reflux disease without esophagitis; J45.909 Unspecified asthma, uncomplicated; G47.30 Sleep apnea, unspecified
CPT/HCPCS: 71045; 74176; 80053; 83605; 83690; 84702; 85025; 85610; 85730; 96361; 96372; 96374; 96375; 99284; J2405; J2550; J7040